=== PATIENT | male | born 1960 | race Caucasian/White ===

== ENCOUNTER 2017-03-23 06:12 | Outpatient (CLI) | payer BC ==
[~2017-03-23] VITALS: Ht 185.4 cm; Wt 129.3 kg
[~2017-03-23 06:12] MED LIST: AZIT-21 PO; BENZ100C18 PO; CPR500T PO; INSASP10V SQ; INSU100C4 SQ; LOSA1TAB20 PO; METR500T PO
[2017-03-23] MEDS ORDERED: INSU100V6 SQ (14:33)
== END 2017-03-23 14:36 ==
LOC: PREOP 06:12
PROVIDERS: ATTEND Internal Medicine
DX: Z01.818 Encounter for other preprocedural examination (principal); K63.5 Polyp of colon

== ENCOUNTER 2017-03-25 09:26 | Day surgery (SDC) | payer BC ==
--- NOTE | 2017-03-18 09:18 | HISTORY AND PHYSICAL ---
DATE OF SERVICE: COLONOSCOPY HISTORY AND PHYSICAL HISTORY OF PRESENT ILLNESS: The patient is a 56-year-old white male referred for surveillance colonoscopy due to the past history of adenomatous colonic polyps. He underwent colonoscopy last 5 years ago performed by myself, at which time he had one tubular adenoma removed from the descending colon. He had an anal canal papilloma with no other abnormalities being noted on the procedure. Since that time, he reports no change in the health history. He has felt well and has noted no bright red blood per rectum or melena. Denies abdominal pain or bowel habit change. His weight is 30 pounds over the last 5 years. PAST MEDICAL HISTORY: Significant for type 2 diabetes mellitus that is insulin dependent. MEDICATIONS: He takes 32 units of Lantus in the morning and 30 in the evening with 20 units of NovoLog before breakfast and lunch and 10 before supper. SOCIAL HISTORY: He is employed with no significant past tobacco history. 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 He has a distant past history of binge drinking, but has been off alcohol for the past 7 years. FAMILY HISTORY: Mother is living at the age of 88, but has been diagnosed with lung cancer with the history of smoking. Father of an LA at the age of 66. He is not aware of any family history for colon cancer or colon polyps. PHYSICAL EXAMINATION: GENERAL: Reveals a pleasant overweight white male, in no acute distress with a weight of 304 pounds, estimated roughly 6 feet tall. VITAL SIGNS: Blood pressure 130/98 with a large cuff, heart rate 72 and regular. HEENT: Unremarkable. Sclerae nonicteric. NECK: Revealed no JVD, adenopathy or bruits. CHEST: Clear. CARDIOVASCULAR: Reveals regular rate and rhythm without murmur, S3 or S4. ABDOMEN: Soft, supple, obese, nontender without mass or organomegaly. EXTREMITIES: Reveal no cyanosis, clubbing or edema. RECTAL EXAMINATION: Deferred at the time of colonoscopy, which was set up on 03/25/2017. ASSESSMENT: The patient was set up for surveillance colonoscopy on 03/25/2017. Prep instructions of the Suprep kit were given and questions were answered. The patient is advised to abstain from aspirin starting now and the day before his procedure, reduce his insulin by half, basal as well as bolus to prevent hypoglycemia. I thank you for the referral of this pleasant gentleman. Job ID: [id number] DocumentID: [id number] Dictated Date: 03/16/2017 20:11:29 Superintendent [employer] Date: 03/16/2017 21:04:38 Dictated By: JAROD MARIE MD MTDD
[~2017-03-25] VITALS: Ht 185.4 cm; Wt 129.3 kg
[~2017-03-25 09:26] MED LIST changes: +INSU100V6 SQ
--- OUTSIDE RECORDS SUMMARY | 2017-03-25 09:30 | XMS REPORT | Continuity of Care Document ---
Author Author [facility] Organization [facility] Address Unknown Phone Unavailable Allergies Active Description Code Type Severity Reaction Onset Reported/Identified Relationship to Patient Clinical Status Yes TETANUS TETANUS Unknown N/A 12/13/2011 Yes pioglitazone HCl [id number] Drug Allergy Unknown N/A 03/29/2012 Medications Problems Date Dx Coded Attending Type Code Diagnosis Diagnosed By 03/30/2012 Ot 250.00 03/30/2012 Ot 562.11 03/30/2012 Ot 796.2 03/30/2012 Ot V03.82 03/30/2012 Ot V58.67 01/07/2013 EUSEBIO BURNETTE MD Ot 490 01/07/2013 EUSEBIO BURNETTE MD Ot 786.2 01/05/2015 Ot V72.84 01/05/2015 Ot 211.3 01/05/2015 Ot 211.4 01/05/2015 Ot V76.51 01/05/2015 CORNELIO REDDY MD Ot 250.00 01/05/2015 CORNELIO RDEDY MD Ot 787.91 01/05/2015 CORNELIO REDDY MD Ot V58.67 Procedures Results Encounters ACCT No. Visit Date/Time Discharge Status Pt. Type Provider Facility Loc./Unit Complaint [id number] 01/05/2015 13:13:00 2014 15:45:00 DIS Emergency CORNELIO REDDY MD [facility] ER [id number] 01/07/2013 18:02:00 2012 19:27:00 DIS Emergency EUSEBIO BURNETTE MD [facility] ER [id number] 03/25/2017 11:30:00 PEN Preadmit JAROD MARIE MD [facility] SURVEILLANCE, HISTORY COLON POLYPS [id number] 03/28/2012 17:56:00 Document Registration [id number] 12/14/2011 06:43:00 Document Registration [id number] 12/13/2011 07:46:00 Document Registration
[2017-03-25 09:51] VITALS: BP 182/94
[2017-03-25] MEDS ORDERED: MIDAZOLAM 2 MG/2 ML (VERSED) VIAL IVP PRN (10:00)
[2017-03-25] MEDS ORDERED: 1/2 NS IV SOLUTION 1,000 ML IV ONE (10:00)
[2017-03-25] MEDS ORDERED: fentaNYL INJECTION 100 MCG/2 ML AMP IVP PRN (10:00)
--- NOTE | 2017-03-25 10:36 | Pre-Op Note & Conscious Sedat ---
Pre-Operative Progress Note H&P Reviewed The H&P was reviewed, patient examined and no changes noted. Date H&P Reviewed: Mar 25, 2017 Time H&P Reviewed: 10:36 Conscious Sedation Pre-Proced ASA Class: 2 Airway Mallampati Classification: (buckland appropriate class) I. II. III, IV Lungs Heart ASA score ASA 1: a normal healthy patient ASA 2: a patient with a mild systemic disease (mid diabetes, controlled hypertension, obesity ASA 3: a patient with a severe systemic disease that limits activity (angina , COPD, prior Myocardial infarction) ASA 4: a patient with an incapacitating disease that is a constant threat to life (CHF, renal failure) ASA 5: a moribund patient not expected to survive 24 hrs. (ruptured aneurysm) ASA 6: a declared brain patient whose organs are being harvested. For emergent operations, add the letter E after the classification Grade 3 Sedation Plan: Analgesia, Amnesia, Plan communicated to team members, Discussed options with patient/fam, Discussed risks with patient/fam Note The patient is an appropriate candidate to undergo the planned procedure, sedation, and anesthesia. The patient immediately re-assessed prior to indication. JAROD MARIE MD Mar 25, 2017 10:36
[2017-03-25] MEDS ORDERED: fentaNYL INJECTION 100 MCG/2 ML AMP ONE ×2 (10:52→10:53)
[2017-03-25] MEDS ORDERED: LIDOCAINE JELLY 2% (XYLOCAINE) 5 ML TUBE ONE (10:52)
[2017-03-25] MEDS ORDERED: MIDAZOLAM 2 MG/2 ML (VERSED) VIAL ONE ×3 (10:53)
[2017-03-25] MEDS ORDERED: LIDOCAINE JELLY 2% (XYLOCAINE) 5 ML TUBE MM PRN (11:00)
[2017-03-25 12:15] VITALS: BP 194/105
[2017-03-25] MEDS ORDERED: METO-310 PO (12:40)
[2017-03-25 12:45] VITALS: BP 194/105
[2017-03-25 13:05] VITALS: BP 194/105
--- NOTE | 2017-03-26 04:37 | OPERATIVE REPORT ---
DATE OF SERVICE: REPORT TITLE: Colonoscopy Summary INDICATIONS FOR THE PROCEDURE: Surveillance colonoscopy, history of colon polyps. The patient was placed in left lateral decubitus position. Prior to undergoing colonoscopy, digital rectal evaluation was performed. Anal sphincter tone was normal and the perianal reflex was intact. Again noted, there was a small perianal papilloma unchanged. The prostate was mildly enlarged, without nodularity and nontender on digital inspection. No other abnormalities noted on additional inspection of the anal canal or distal rectal vault. The colonoscope was then inserted into the rectum and under direct visualization advanced to the cecum. The cecum was identified by identification of the ileocecal valve and cecal strap. Photographic documentation was obtained. Careful inspection was made as the colonoscope was withdrawn. FINDINGS: There was no evidence for internal or external hemorrhoids and the rectum, sigmoid colon, descending colon, splenic flexure were unremarkable. Present in the proximal transverse colon was a diminutive 1 mm polyp, which was biopsied and ablated with hot forceps with tissue submitted for histopathology. A similar cecal polyp was noted again in 1 to 2 mm in size and was biopsied and ablated with no subsequent blood loss. No other abnormalities were noted on today's procedure. ASSESSMENT: Two diminutive polyps were removed today via hot forceps with no blood loss. As long as there are no surprises on histopathology, and there continues to be no family history for colon cancer, would advocate repeat screening colonoscopy in 10 years. Job ID: [id number] DocumentID: [id number] Dictated Date: 03/25/2017 13:07:07 Deputy Jailer Date: 03/25/2017 23:55:35 Dictated By: JAROD MARIE MD MTDD
== END 2017-03-25 13:05 | disposition home or self-care (01) ==
LOC: ENDO 09:26
PROVIDERS: ATTEND Internal Medicine
DX: Z12.11 Encounter for screening for malignant neoplasm of colon (principal); D12.0 Benign neoplasm of cecum; D12.3 Benign neoplasm of transverse colon; D23.5 Other benign neoplasm of skin of trunk; N40.0 Benign prostatic hyperplasia without lower urinary tract symptoms; E11.9 Type 2 diabetes mellitus without complications; Z79.4 Long term (current) use of insulin
CPT/HCPCS: 82962

== ENCOUNTER → 2018-05-19 | Outpatient (CLI) | payer BC ==
[~2018-05-19] MED LIST changes: +METO-310 PO
== END ==
LOC: CARD 12:33
PROVIDERS: ATTEND Internal Medicine Cardiovascular Disease
DX: I10 Essential (primary) hypertension (principal); E66.9 Obesity, unspecified; E11.9 Type 2 diabetes mellitus without complications; I34.0 Nonrheumatic mitral (valve) insufficiency; Z82.49 Family history of ischemic heart disease and other diseases of the circulatory system
CPT/HCPCS: 93306

== ENCOUNTER → 2019-04-13 | Outpatient (CLI) | payer BC ==
--- NOTE | 2019-04-13 10:48 | Diagnostic Imaging Report ---
PROCEDURE: US Renal Bilateral. TECHNIQUE: Multiple real-time grayscale images were obtained over the kidneys in various projections bilaterally. INDICATION: Chronic kidney disease. FINDINGS: The right kidney measures 12.2 x 6.6 x 6.1 cm and the left kidney measures 11.9 x 6.4 x 4.6 cm. Cortical thickness and echogenicity is normal bilaterally. No calculi or hydronephrosis is identified. No bladder wall thickening or mass is seen. Left ureteral jet was not visualized. Right ureteral jet is unremarkable. IMPRESSION: Unremarkable renal ultrasound. Dictated by: Dictated on workstation # [id number]
== END ==
LOC: RAD 09:30
PROVIDERS: ATTEND Internal Medicine Nephrology
DX: N18.3 Chronic kidney disease, stage 3 (moderate) (principal)
CPT/HCPCS: 76770

== ENCOUNTER → 2020-07-10 | Outpatient (CLI) | payer BC ==
--- NOTE | 2020-07-10 18:13 | NUR ---
Notified of positive COVID test.
== END ==
LOC: LABNPT 08:38
PROVIDERS: ATTEND Family Medicine
DX: U07.1 COVID-19 (principal)
CPT/HCPCS: 87635

== ENCOUNTER 2020-07-11 13:16 | Outpatient (CLI) | payer BC ==
[~2020-07-11] VITALS: Ht 185 cm; Wt 144.0 kg
[2020-07-11 13:18] VITALS: BP 116/46
[2020-07-11] MEDS ORDERED: diphenhydrAMINE 50 MG/ML INJ (BENADRYL) IV PRN (13:30)
[2020-07-11] MEDS ORDERED: BAMLANIVIMAB 700 MG in NS 200 ML IV ONE (13:30)
[2020-07-11] MEDS ORDERED: EPINEPHrine INJECTION 1 MG/ML AMP IM PRN (13:30)
[2020-07-11 14:47] VITALS: BP 178/79
[2020-07-11 15:37] VITALS: BP 189/84
== END 2020-07-11 15:50 | disposition home or self-care (01) ==
LOC: INFUSION 13:16
PROVIDERS: ATTEND Family Medicine
DX: U07.1 COVID-19 (principal)

== ENCOUNTER → 2020-07-22 | Outpatient (CLI) | payer BC ==
--- NOTE | 2020-07-22 14:48 | Diagnostic Imaging Report ---
INDICATION: Lobar pneumonia, COVID-19 coronavirus infection, diabetes mellitus. COMPARISON: 09/24/2006. FINDINGS: Frontal and lateral views of the chest demonstrate normal heart size and pulmonary vascularity. The lungs are clear. There are no signs of infiltrate, pleural effusions or pneumothoraces. The visualized osseous structures show no acute abnormalities. IMPRESSION: 1. No acute process. No signs of infiltrates, effusions or pneumothoraces. Dictated by: Dictated on workstation # [id number]
== END ==
LOC: RAD 13:53
PROVIDERS: ATTEND Internal Medicine
DX: U07.1 COVID-19 (principal); J18.1 Lobar pneumonia, unspecified organism; E11.65 Type 2 diabetes mellitus with hyperglycemia
CPT/HCPCS: 71046

== ENCOUNTER → 2020-09-11 | Outpatient (CLI) | payer BC ==
--- NOTE | 2020-09-11 15:46 | Diagnostic Imaging Report ---
INDICATION: Right lower extremity swelling and pain x4 days. History of Covid. TECHNIQUE: Multiple real-time grayscale images were obtained over the right lower extremity in various projections, bilaterally. Additional duplex Doppler and color Doppler images were also obtained. CORRELATION STUDY: None FINDINGS: Color and grayscale sonographic images demonstrate no intraluminal defect within the visualized portion of the common femoral, superficial femoral and/or popliteal veins to suggest thrombus formation. These vessels demonstrate normal response to compression and augmentation. No soft tissue fluid collection. IMPRESSION: 1. Negative for deep venous thrombosis of the right leg. Dictated by: Dictated on workstation # [id number]
== END ==
LOC: RAD 15:07
PROVIDERS: ATTEND Internal Medicine
DX: M79.89 Other specified soft tissue disorders (principal); U07.1 COVID-19

== ENCOUNTER 2022-01-11 21:11 | Emergency (ER) | payer BC ==
[~2022-01-11] VITALS: Ht 185 cm; Wt 140.0 kg
--- NOTE | 2022-01-11 22:22 | ED Cough/URI ---
General Chief Complaint: COVID19 Suspect/Confirmed Stated Complaint: CONGESTION/COUGH Source: patient Exam Limitations: no limitations (JOSSELYN DOTSON) History of Present Illness Date Seen by Provider: Jan 11, 2022 Time Seen by Provider: 22:20 Initial Comments Patient is a 61-year-old male who presents ED with cough congestion. Symptoms started this morning when he woke up. Bodyaches fatigue weakness. Reports a dry cough without chest pain or shortness of breath or wheezing. No history of COPD, asthma coronary artery disease. History of diabetes, kidney disease and hypertension. Denies of any vomiting, diarrhea. Took NyQuil today without much improvement. Was sent home from work. Patient reports history of COVID and received the monoclonal antibody. Not up-to-date on his COVID vaccines or immunization. Patient with a fever here in the ED. Does not appear toxic or septic (JOSSELYN DOTSON) Allergies and Home Medications Allergies Coded Allergies: pioglitazone HCl (Verified Allergy, Unknown, 03/25/17) LISTED BY DR. GUIDO. Uncoded Allergies: TETANUS (Allergy, Unknown, 03/23/17) Patient Home Medication List Home Medication List Reviewed: Yes (JOSSELYN DOTSON) Insulin Glargine,Hum.rec.anlog (Lantus) 300 Units/3 Ml Soln, 32 UNITS SQ MORNING, (Reported) Entered as Reported by: MARCELA COBB on 12/13/11 1458 Insulin Glargine,Hum.rec.anlog (Lantus) 100 Unit/1 Ml Vial, 30 UNIT SQ EVENING, (Reported) Entered as Reported by: SONAM SPARKS on 03/23/17 1433 Insulin Human Lispro (Humalog) 100 U/Ml Vial, 20 UNITS SQ AC, (Reported) Entered as Reported by: JUSTINE TORRES on 03/28/12 1808 Review of Systems Review of Systems Constitutional: chills; No diaphoresis; fever, malaise, weakness EENTM: No ear pain, No blurred vision, No double vision, No mouth pain, No mouth swelling, No throat pain, No throat swelling Respiratory: cough; No short of breath, No wheezing Cardiovascular: No chest pain Gastrointestinal: No abdominal pain, No nausea, No vomiting Genitourinary: No decreased output, No discharge Musculoskeletal: No back pain, No gout Skin: No change in color, No change in hair/nails (JOSSELYN DOTSON) All Other Systems Reviewed Negative Unless Noted: Yes (JOSSELYN DOTSON) Past Gwpajek-Ffeegy-Ccrwpf Hx Seasonal Allergies Seasonal Allergies: No (JOSSELYN DOTSON) Past Medical History Orthopedic Reproductive Disorders: No Sexually Transmitted Disease: No HIV/AIDS: No Polyps Diabetes, Insulin dep Loss of Vision: Denies Hearing Impairment: Denies Adverse Reaction/Blood Tranf: No (JOSSELYN DOTSON) Physical Exam Vital Signs - First Documented 01/11/22 22:08 O2 Delivery Room Air (JOSSELYN MURRAY MD) Capillary Refill : (JOSSELYN DOTSON) Height: 6'1.00" Weight: 285lbs. 0.0oz. 129.548791js; 37.6 BMI Method:Stated General Appearance: WD/WN, no apparent distress Eyes: Bilateral Eye Normal Inspection, Bilateral Eye PERRL, Bilateral Eye EOMI HEENT: PERRL/EOMI, normal ENT inspection, TMs normal, pharynx normal Neck: non-tender, full range of motion, supple, normal inspection Respiratory: chest non-tender, lungs clear, normal breath sounds, no accessory muscle use Cardiovascular: regular rate, rhythm, no edema, no gallop, no JVD Gastrointestinal: normal bowel sounds, non tender, soft, no organomegaly Extremities: normal range of motion, non-tender, normal inspection, no pedal edema Neurologic/Psychiatric: entertainment manager II-XII nml as tested, no motor/sensory deficits, alert, normal mood/affect, oriented x 3 Skin: normal color, warm/dry (JOSSELYN DOTSON) Progress/Results/Core Measures Suspected Sepsis SIRS Temperature: Pulse: Respiratory Rate: Blood Pressure / Mean: (JOSSELYN DOTSON) Results/Orders Lab Results Laboratory Tests Test 01/11/22 22:13 Range/Units Influenza Type A (RT-PCR) Not Detected Not Detecte Influenza Type B (RT-PCR) Not Detected Not Detecte SARS-CoV-2 RNA (RT-PCR) Detected H Not Detecte (JOSSELYN MURRAY MD) My Orders Orders - JOSSELYN MURRAY MD Rx-Nirmatrelvir/Ritonavir(Eua) (Rx-Paxlo (01/11/22 23:44) (JOSSELYN MURRAY MD) Medications Given in ED Current Medications Medications Dose Ordered Sig/Frida Route Start Time Stop Time Status Last Admin Dose Admin Acetaminophen 1,000 mg ONCE ONCE PO 01/11/22 22:30 01/11/22 22:31 DC 01/11/22 22:50 1,000 MG (JOSSELYN MURRAY MD) Vital Signs/I&O 01/11/22 22:08 O2 Delivery Room Air (JOSSELYN MURRAY MD) Vital Signs/I&O Capillary Refill : (JOSSELYN DOTSON) Departure Communication (PCP) Patient's symptoms started this morning. Patient was febrile. Patient was given acetaminophen. Patient denies any chest pain or shortness of breath. No evidence of wheezing noted on exam. No abdominal tenderness. Vital signs stable. Symptoms started this morning. Not up-to-date on his COVID influenza vaccine. Concerning for COVID. Currently swabs are pending. Patient was discussed with Dr. Murray who took over care at 11 PM. If positive for COVID would likely benefit with monoclonal antibody as patient is high risk (JOSSELYN DOTSON) Impression Primary Impression: COVID-19 Disposition: 01 HOME, SELF-CARE Condition: Stable Departure-Patient Inst. Decision time for Depature: 23:47 (JOSSELYN MURRAY MD) Referrals: LYNDON GÓMEZ DO (PCP/Family) Primary Care Physician Patient Instructions: Nirmatrelvir and Ritonavir FDA Fact Sheet, COVID-19 Over view Add. Discharge Instructions: You unfortunately do have COVID. You will be on this medicine twice a day for the next 5 days. Take Tylenol and/or ibuprofen as needed for fever. If you begin feeling severely short of breath we recommend coming to the ER. You can buy an oxygen probe to test your oxygen. If you go to 90% or below and cannot get it to go back up for several minutes, that is what we recommend coming back to the ER. Work/School Note: Work Release Form Date Seen in the Emergency Department: Jan 11, 2022 Return to Work: Jan 17, 2022 Restrictions: Return-No Fever (24hrs) JOSSELYN DOTSON Jan 11, 2022 22:22 JOSSELYN MURRAY MD Jan 11, 2022 23:48
[2022-01-11] MEDS ORDERED: ACETAMINOPHEN 500 MG TAB (TYLENOL) PO ONE (22:30)
[2022-01-11] MEDS ORDERED: RX-NIRMATRELVIR/RITONAVIR (PAXLOVID) #30 TABS PO STA (23:44)
[2022-01-12 00:02] VITALS: BP 152/84
== END 2022-01-12 00:02 | disposition home or self-care (01) ==
LOC: EDUNIT# 21:11 → ER 21:13
DX: U07.1 COVID-19 (principal); E11.9 Type 2 diabetes mellitus without complications; Z79.4 Long term (current) use of insulin
CPT/HCPCS: 87636; 99283

== ENCOUNTER 2023-06-08 16:00 | Inpatient (IN) | payer OTHER ==
[~2023-06-08] VITALS: Ht 185.4 cm; Wt 145.6 kg
[~2023-06-08 16:00] MED LIST changes: +AMIO200T65 PO; +ASPI81TA64 PO; +ATOR80TA76 PO; +CLOP75TA28 PO; +INSU100I10 SC; +MTP100TCR PO
--- NOTE | 2023-06-08 16:23 | ED Respiratory ---
General Chief Complaint: Respiratory Problems Stated Complaint: DIFFICULTY BREATHING | LEGS SWELLING Nursing Triage Note: PT AMB TO [facility] 7 WITH CC OF SOA AND SWELLING IN BILAT LEGS SINCE THIS AM. PT REPORTS WAS AT CARDIAC REHAB THIS AM WHEN HE HAD INCREASE WOB. PT STATES HAD STENT PLACED 1 MONTH PRIOR. PT DENIES CP AT THIS TIME PT A&OX4 Source: patient Exam Limitations: no limitations History of Present Illness Date Seen by Provider: Jun 08, 2023 Time Seen by Provider: 16:11 Initial Comments 62-year-old male presents to the ER with complaint of shortness of breath. He reports that this morning he was at cardiac rehab when he started to have shortness of breath. He reports it has been intermittent since then. Patient complains of bilateral lower extremity edema, states that the swelling has been the same for the last 3 weeks. Patient was here at the beginning of May for dizziness and was found to be in V. tach. At that time he was taken to the [facility] and found to have 100% occlusion of the LC. It was stented with 1 stent. During that admission he had bilateral lower extremity edema. He denies fevers, headache, chest pain, abdominal pain, nausea, vomiting. He reports that when he had the episode of shortness of air, he was coughing a lot and was producing white phlegm. Patient had COVID approximately 7 to 8 weeks ago. Allergies and Home Medications Allergies Coded Allergies: pioglitazone HCl (Verified Allergy, Unknown, 03/25/17) LISTED BY DR. GUIDO. Uncoded Allergies: TETANUS (Allergy, Unknown, 03/23/17) Patient Home Medication List Home Medication List Reviewed: Yes Amiodarone HCl (Amiodarone HCl) 200 Mg Tablet, 400 MG PO BID Prescribed by: MATHEUS MOLINA on 05/09/231119 Aspirin (Children's Aspirin) 81 Mg Tab.chew, 81 MG PO DAILY Prescribed by: MATHEUS MOLINA on 05/09/231119 Atorvastatin Calcium (Atorvastatin Calcium) 80 Mg Tablet, 80 MG PO HS Prescribed by: MATHEUS MOLINA on 05/09/231119 Clopidogrel Bisulfate (Clopidogrel) 75 Mg Tablet, 75 MG PO DAILY Prescribed by: MATHEUS MOLINA on 05/09/231119 Insulin Glargine,Hum.rec.anlog (Lantus Solostar) 100 Unit/Ml (3 Ml) Insuln.pen, 55 UNITS SC BID, (Reported) Entered as Reported by: COOKIE MCGUIRE on 05/09/23 3718 Metoprolol Succinate (Metoprolol Succinate) 100 Mg Tab.er.24h, 100 MG PO DAILY Prescribed by: MATHEUS MOLINA on 05/09/23 1120 Review of Systems Review of Systems Constitutional: see HPI Past Cwanvxw-Oajaxr-Avrect Hx Patient Social History Tobacco Use?: No Substance use?: No Alcohol Use?: Yes Alcohol Frequency: Several times a month Immunizations Up To Date First/Initial COVID19 Vaccinat: N/A Second COVID19 Vaccination Kristofer: N/A Third COVID19 Vaccination Date: N/A Seasonal Allergies Seasonal Allergies: No Past Medical History Surgery/Hospitalization HX: DM2, HTN, CKD Orthopedic Reproductive Disorders: No Sexually Transmitted Disease: No HIV/AIDS: No Polyps Diabetes, Insulin dep Loss of Vision: Denies Hearing Impairment: Denies Adverse Reaction/Blood Tranf: No Physical Exam Vital Signs - First Documented 06/08/23 16:04 Pulse 66 Resp 28 B/P (MAP) 166/98 (120) Pulse Ox 98 O2 Delivery Nasal Cannula O2 Flow Rate 3.00 Capillary Refill : Less Than 3 Seconds Height: 6'1.00" Weight: 285lbs. 0.0oz. 129.920343vk; 43.00 BMI Method:Stated General Appearance: WD/WN, no apparent distress Neck: supple, normal inspection Respiratory: lungs clear, no respiratory distress, no accessory muscle use, decreased breath sounds (Lower lobes) Cardiovascular: regular rate, rhythm Extremities: normal range of motion, non-tender, no calf tenderness, pedal edema (2+ pitting edema right lower extremity, 1+ pitting edema left lower extremity), other (Pedal pulses intact) Neurologic/Psychiatric: alert, normal mood/affect Skin: normal color, warm/dry Progress/Results/Core Measures Suspected Sepsis SIRS Temperature: Pulse: 66 Respiratory Rate: 28 Laboratory Tests 06/08/23 16:13: White Blood Count 6.4 Blood Pressure 166 /98 Mean: 120 Laboratory Tests 06/08/23 16:13: Creatinine 2.67H, Platelet Count 163, Total Bilirubin 0.4 Results/Orders Lab Results Laboratory Tests Test 06/08/23 16:13 Range/Units White Blood Count 6.4 4.3-11.0 10^3/uL Red Blood Count 3.91 L 4.30-5.52 10^6/uL Hemoglobin 11.3 L 13.3-17.7 g/dL Hematocrit 36 L 40-54 % Mean Corpuscular Volume 91 80-99 fL Mean Corpuscular Hemoglobin 29 25-34 pg Mean Corpuscular Hemoglobin Concent 32 32-36 g/dL Red Cell Distribution Width 15.1 H 10.0-14.5 % Platelet Count 163 130-400 10^3/uL Mean Platelet Volume 11.0 9.0-12.2 fL Immature Granulocyte % (Auto) 1 % Neutrophils (%) (Auto) 58 42-75 % Lymphocytes (%) (Auto) 28 12-44 % Monocytes (%) (Auto) 11 0-12 % Eosinophils (%) (Auto) 3 0-10 % Basophils (%) (Auto) 1 0-10 % Neutrophils # (Auto) 3.7 1.8-7.8 10^3/uL Lymphocytes # (Auto) 1.8 1.0-4.0 10^3/uL Monocytes # (Auto) 0.7 0.0-1.0 10^3/uL Eosinophils # (Auto) 0.2 0.0-0.3 10^3/uL Basophils # (Auto) 0.0 0.0-0.1 10^3/uL Immature Granulocyte # (Auto) 0.0 0.0-0.1 10^3/uL Sodium Level 142 135-145 MMOL/L Potassium Level 4.5 3.6-5.0 MMOL/L Chloride Level 107 98-107 MMOL/L Carbon Dioxide Level 27 21-32 MMOL/L Anion Gap 8 5-14 MMOL/L Blood Urea Nitrogen 31 H 7-18 MG/DL Creatinine 2.67 H 0.60-1.30 MG/DL Estimat Glomerular Filtration Rate 26 BUN/Creatinine Ratio 12 Glucose Level 139 H 70-105 MG/DL Calcium Level 9.8 8.5-10.1 MG/DL Corrected Calcium 9.9 8.5-10.1 MG/DL Magnesium Level 1.9 1.6-2.4 MG/DL Total Bilirubin 0.4 0.1-1.0 MG/DL Aspartate Amino Transf (AST/SGOT) 13 5-34 U/L Alanine Aminotransferase (ALT/SGPT) 14 0-55 U/L Alkaline Phosphatase 105 40-136 U/L B-Type Natriuretic Peptide 1194.2 H <100.0 PG/ML Total Protein 7.2 6.4-8.2 GM/DL Albumin 3.9 3.2-4.5 GM/DL My Orders Orders - SALVADOR GRACIA Talat TAYLOR Ekg Tracing (06/08/23 16:11) Cbc And Automated Diff (06/08/23 16:21) Magnesium (06/08/23 16:21) Chest 1 View, Ap/Pa Only (06/08/23 16:21) Comprehensive Metabolic Panel (06/08/23 16:21) O2 (06/08/23 16:21) Monitor-Rhythm Ecg Trace Only (06/08/23 16:21) Ed Iv/Invasive Line Start (06/08/23 16:21) Bnp [place] (06/08/23 16:21) Furosemide Injection (Furosemide Injec (06/08/23 17:45) Ed Admission (Communication) (06/08/23 17:48) Medications Given in ED Current Medications Medications Dose Ordered Sig/Frida Route Start Time Stop Time Status Last Admin Dose Admin Furosemide 80 mg ONCE ONCE IVP 06/08/23 17:45 06/08/23 17:46 DC 06/08/23 17:49 80 MG Vital Signs/I&O 06/08/23 06/08/23 16:04 16:04 Pulse 66 Resp 28 B/P (MAP) 166/98 (120) Pulse Ox 98 98 O2 Delivery Nasal Cannula Nasal Cannula O2 Flow Rate 3.00 3.00 Capillary Refill : Less Than 3 Seconds Blood Pressure Mean: 120 Progress Note : Progress Note Patient seen and evaluated, resting currently in bed, no acute distress. Based on exam and symptoms, parental diagnosis includes but is not limited to CHF exacerbation or pneumonia. Other possibility would be a PE, but Wells score for PE is 0. Patient does not have clinical signs symptoms of a DVT. Cardiac catheterization was 5 weeks ago. Work-up initiated included CBC, CMP, magnesium, BNP, chest x-ray, EKG. I initially ordered a COVID and flu swab, but this patient states that he had COVID just prior to his last admission at the end of April. Echo completed during previous admission showed EF of 45 to 50%. 1744 labs and chest x-ray reviewed. CBC shows anemia, hemoglobin 11.3, hematocrit 36, these are improved from previous labs. CMP shows chronic kidney disease, BUN 31, creatinine 2.67, GFR 26, these are baseline for patient. Magnesium normal 1.9. BNP elevated 1194. This is over twice as much as previous admission. Chest x-ray shows stable cardiomegaly. It shows possible developing infiltrate or atelectasis in the left lower lobe but difficult to view due to body habitus. Called and discussed the case with Dr. Dunn, cardiology. He recommends administering 80 mg of IV Lasix now and daily. Patient has never taken Lasix. Due to patient's hypoxia, I called and spoke with Dr. Kim, hospitalist, he agrees to admit patient. He will place admission orders. He would like patient to go to the cardiac stepdown unit as an inpatient. ECG Initial ECG Impression Date: Jun 08, 2023 Initial ECG Impression Time: 16:22 Initial ECG Rate: 67 Initial ECG Rhythm: Normal Sinus Initial ECG Intervals: MD (100) Initial ECG Impression: Nonspecific Changes Initial ECG Comparisson: Unchanged Departure Communication (Admissions) Time/Spoke to Admitting Phy: 17:44 Dr. Kim, hospitalist, see progress note. Time/Spoke to Consulting Phy: 17:34 Dr. Dunn, cardiology, see progress note. Impression Primary Impression: CHF exacerbation Qualified Codes: I50.9 - Heart failure, unspecified Additional Impression: Hypoxia Disposition: ADMITTED INPATIENT Condition: Stable Admissions Decision to Admit Reason: Admit from ER (General) Decision to Admit/Date: Jun 08, 2023 Time/Decision to Admit Time: 17:34 Departure-Patient Inst. Referrals: LYNDON GÓMEZ DO (PCP/Family) Primary Care Physician SALVADOR GRACIA APRN Jun 08, 2023 16:23
[2023-06-08 16:30] LABS: BASOPHILS % (AUTO) 1 % (0-10); EOSINOPHILS # (AUTO) 0.2 10^3/uL (0.0-0.3); EOSINOPHILS % (AUTO) 3 % (0-10); HEMATOCRIT 36 % (40-54); HEMOGLOBIN 11.3 g/dL (13.3-17.7); LYMPHOCYTES # (AUTO) 1.8 10^3/uL (1.0-4.0); LYMPHOCYTES % (AUTO) 28 % (12-44); MEAN CORPUSCULAR HEMOGLOBIN 29 pg (25-34); MEAN CORPUSCULAR HGB CONC 32 g/dL (32-36); MEAN CORPUSCULAR VOLUME 91 fL (80-99); MONOCYTES # (AUTO) 0.7 10^3/uL (0.0-1.0); MONOCYTES % (AUTO) 11 % (0-12); NEUTROPHILS # (AUTO) 3.7 10^3/uL (1.8-7.8); NEUTROPHILS % (AUTO) 58 % (42-75); PLATELET COUNT 163 10^3/uL (130-400); WHITE BLOOD COUNT 6.4 10^3/uL (4.3-11.0)
[2023-06-08 16:45] LABS: ALBUMIN 3.9 GM/DL (3.2-4.5); BILIRUBIN,TOTAL 0.4 MG/DL (0.1-1.0); CALCIUM 9.8 MG/DL (8.5-10.1); CREATININE SERUM 2.67 MG/DL (0.60-1.30); MAGNESIUM 1.9 MG/DL (1.6-2.4); POTASSIUM 4.5 MMOL/L (3.6-5.0); TOTAL PROTEIN 7.2 GM/DL (6.4-8.2)
--- NOTE | 2023-06-08 16:46 | Diagnostic Imaging Report ---
INDICATION: Chest pain. COMPARISON: 05/04/2023. FINDINGS: The heart is enlarged but unchanged. Body habitus limits basilar evaluation. There may be an infiltrate or atelectasis in the left lower lobe but this is unclear. The upper lobes are clear. No pneumothorax. No definite pleural fluid. IMPRESSION: Stable cardiomegaly. There may be a developing infiltrate or atelectasis in the left lower lobe. No other potential change. Dictated by: Dictated on workstation # [id number]
[2023-06-08] MEDS ORDERED: FUROSEMIDE INJECTION 40 MG/4 ML VIAL IVP ONE (17:45)
[2023-06-08] MEDS ORDERED: MELATONIN 3 MG TABLET PO PRN (19:15)
[2023-06-08] MEDS ORDERED: diphenhydrAMINE 25 MG TABLET PO PRN (19:15)
[2023-06-08] MEDS ORDERED: ONDANSETRON INJECTION 4 MG/2 ML (SDV) IV PRN (19:15)
[2023-06-08] MEDS ORDERED: ACETAMINOPHEN 325 MG TABLET PO PRN (19:15)
[2023-06-08] MEDS ORDERED: diphenhydrAMINE INJ 50 MG/ML VIAL IVP PRN (19:15)
[2023-06-08] MEDS ORDERED: CALCIUM CARBONATE 500 MG CHEW TABLET PO PRN (19:15)
[2023-06-08] MEDS ORDERED: MILK OF MAGNESIA 400 MG/5 ML 30 ML UDC PO PRN (19:15)
[2023-06-08] MEDS ORDERED: ONDANSETRON 4 MG ORAL DISSOLVE TABLET PO PRN (19:15)
[2023-06-08] MEDS ORDERED: ANTACID SUSPENSION 30 ML UDC PO PRN (19:15)
[2023-06-08] MEDS ORDERED: LACTULOSE SYRUP 10GM/15ML 30ML UDC PO PRN (19:15)
[2023-06-08] MEDS ORDERED: BISACODYL 10 MG SUPPOSITORY PR PRN (19:15)
[2023-06-08 19:39] VITALS: BP 166/98
[2023-06-08] MEDS ORDERED: RT-ALBUTEROL SULF 2.5 MG/3 ML PRE-MIX VIAL INH PRN (20:00)
[2023-06-08] MEDS: inSUlin ASPART 1 UNIT/0.01 ML (PER UNIT) SC SCH (20:39)
[2023-06-08] MEDS: SENNOSIDES 8.6 MG TABLET PO SCH (20:40)
[2023-06-08] MEDS: DOCUSATE SODIUM 100 MG CAPSULE PO SCH (20:40)
[2023-06-08] MEDS: AMIODARONE 200 MG TABLET PO SCH (20:45)
[2023-06-08] MEDS: inSUlin DETERMIR 1 UNIT/0.01 ML (CHARGE PER UNIT) SQ SCH (20:45)
[2023-06-08 23:15] VITALS: BP 164/99
[2023-06-09 04:28] VITALS: BP 134/86
[2023-06-09 04:46] LABS: BASOPHILS % (AUTO) 1 % (0-10); EOSINOPHILS # (AUTO) 0.2 10^3/uL (0.0-0.3); EOSINOPHILS % (AUTO) 3 % (0-10); HEMATOCRIT 36 % (40-54); HEMOGLOBIN 11.3 g/dL (13.3-17.7); LYMPHOCYTES # (AUTO) 1.7 10^3/uL (1.0-4.0); LYMPHOCYTES % (AUTO) 28 % (12-44); MEAN CORPUSCULAR HEMOGLOBIN 28 pg (25-34); MEAN CORPUSCULAR HGB CONC 31 g/dL (32-36); MEAN CORPUSCULAR VOLUME 91 fL (80-99); MEAN PLATELET VOLUME 10.9 fL (9.0-12.2); MONOCYTES # (AUTO) 0.8 10^3/uL (0.0-1.0); MONOCYTES % (AUTO) 13 % (0-12); NEUTROPHILS # (AUTO) 3.3 10^3/uL (1.8-7.8); NEUTROPHILS % (AUTO) 56 % (42-75); PLATELET COUNT 168 10^3/uL (130-400)
[2023-06-09 05:07] LABS: POTASSIUM 4.5 MMOL/L (3.6-5.0)
[2023-06-09 05:08] LABS: CALCIUM 9.4 MG/DL (8.5-10.1)
[2023-06-09 05:13] LABS: CREATININE SERUM 2.73 MG/DL (0.60-1.30)
[2023-06-09] MEDS: inSUlin ASPART 1 UNIT/0.01 ML (PER UNIT) SC SCH ×3 (08:23→16:05)
[2023-06-09] MEDS: SENNOSIDES 8.6 MG TABLET PO SCH (08:24)
[2023-06-09] MEDS: DOCUSATE SODIUM 100 MG CAPSULE PO SCH (08:24)
[2023-06-09] MEDS: inSUlin DETERMIR 1 UNIT/0.01 ML (CHARGE PER UNIT) SQ SCH (08:26)
[2023-06-09] MEDS: AMIODARONE 200 MG TABLET PO SCH (08:26)
[2023-06-09] MEDS ORDERED: ASPI-1238 PO (08:36)
[2023-06-09] MEDS ORDERED: MTP100TCR PO (08:36)
[2023-06-09] MEDS ORDERED: AMIO200T65 PO (08:36)
[2023-06-09] MEDS ORDERED: CLOP75TA28 PO (08:36)
[2023-06-09 08:43] VITALS: BP 154/92
[2023-06-09] MEDS ORDERED: CLOPIDOGREL 75 MG TABLET PO SCH (09:00)
[2023-06-09] MEDS ORDERED: FUROSEMIDE INJECTION 40 MG/4 ML VIAL IVP SCH (09:00)
[2023-06-09 11:48] VITALS: BP 151/108
[2023-06-09] MEDS ORDERED: ASPIRIN 81 MG CHEWABLE TABLET PO NR (13:15)
[2023-06-09] MEDS ORDERED: POTA10CA84 PO (15:48)
[2023-06-09] MEDS ORDERED: FURO40TA4 PO (15:48)
--- NOTE | 2023-06-09 16:36 | Consultation-Cardiology ---
HPI-Cardiology Cardiology Consultation: Date of Consultation 06/09/23 Time Seen by a Provider: 12:30 Date of Admission Attending Physician Rock Ellington DO Admitting Physician Admitting Physician: Imer Herrera MD Attending Physician: Imer Herrera MD Consulting Physician JORGITO RIDDLE MD, MA, FACP, FACC, FSCAI, CCDS Physician requesting consult: Dr Herrera HPI: Chief Complaint: Shortness of breath 62 yo man who could not attend Cardiac Rehab yesterday because of shortness of breath that had been present for 2-3 days and worsening, along with worsening of leg swelling. No cp or palp or syncope or n/v/d or focal weakness or gen weakness. Went to the ER where he was diagnosed with CHF and hospitalized and treated with furosemide. Feels well today and thinks has resumed his baseline. Now wishes to go home Review of Systems-Cardiology Review of Systems Constitutional: As described under HPI Eyes: No vision change Ears/Nose/Throat: No ear discharge, No nasal drainage, No recent hearing loss, No ulcerations Respiratory: As described under HPI Cardiovascular: As described under HPI Gastrointestinal: As described under HPI Genitourinary: No dysuria, No hematuria, No urine frequency changes Musculoskeletal: No back pain, No joint pain Skin: No rash, No ulcerations Psychiatric/Neurological: No seizure, No focal weakness, No syncope Hematologic: No bleeding abnormalities NJD-Qyfzvr-Bhfwua Hx Patient Social History Alcohol Use?: Yes Immunizations Up To Date Date of Pneumonia Vaccine: May 13, 2014 Date of Influenza Vaccine: May 10, 2016 Past Medical History PMH As described under Assessment. Family Medical History Family Medical History: He does not report fam h/o early CAD Allergies and Home Medications Allergies Coded Allergies: pioglitazone HCl (Verified Allergy, Unknown, 03/25/17) LISTED BY DR. GUIDO. Uncoded Allergies: TETANUS (Allergy, Unknown, 03/23/17) Patient Home Medication List Home Medication List Reviewed: Yes Amiodarone HCl (Amiodarone HCl) 200 Mg Tablet, 200 MG PO BID, (Reported) Entered as Reported by: BRIGIDA PERRY on 06/09/23835 Last Action: Reviewed Aspirin (Aspirin EC) 81 Mg Tablet., 81 MG PO DAILY, (Reported) Entered as Reported by: BRIGIDA PERRY on 06/09/23835 Last Action: Reviewed Clopidogrel Bisulfate (Clopidogrel) 75 Mg Tablet, 75 MG PO DAILY, (Reported) Entered as Reported by: BRIGIDA PERRY on 06/09/23835 Last Action: Reviewed Furosemide (Furosemide) 40 Mg Tablet, 40 MG PO DAILY Prescribed by: IMER HERRERA on 06/09/231547 Insulin Glargine,Hum.rec.anlog (Lantus Solostar) 100 Unit/Ml (3 Ml) Insuln.pen, 45 UNITS SC BID, (Reported) Entered as Reported by: COOKIE MCGUIRE on 05/09/231457 Last Action: Reviewed Metoprolol Succinate (Metoprolol Succinate) 100 Mg Tab.er.24h, 100 MG PO DAILY, (Reported) Entered as Reported by: BRIGIDA PERRY on 06/09/23835 Last Action: Reviewed Potassium Chloride (Potassium Chloride) 10 Meq Capsule.er, 10 MEQ PO DAILY Prescribed by: IMER HERRERA on 06/09/231547 Discontinued Medications Amiodarone HCl (Amiodarone HCl) 200 Mg Tablet, 400 MG PO BID Discontinued Reason: Duplicate Order Prescribed by: MATHEUS MOLINA on 05/09/231119 Last Action: Discontinued Aspirin (Children's Aspirin) 81 Mg Tab.chew, 81 MG PO DAILY Discontinued Reason: Duplicate Order Prescribed by: MATHEUS MOLINA on 05/09/231119 Last Action: Discontinued Atorvastatin Calcium (Atorvastatin Calcium) 80 Mg Tablet, 80 MG PO HS Discontinued Reason: Duplicate Order Prescribed by: MATHEUS MOLINA on 05/09/231119 Last Action: Discontinued Clopidogrel Bisulfate (Clopidogrel) 75 Mg Tablet, 75 MG PO DAILY Discontinued Reason: Duplicate Order Prescribed by: MATHEUS MOLINA on 05/09/231119 Last Action: Discontinued Metoprolol Succinate (Metoprolol Succinate) 100 Mg Tab.er.24h, 100 MG PO DAILY Discontinued Reason: Duplicate Order Prescribed by: MATHEUS MOLINA on 05/09/231119 Last Action: Discontinued Physical Exam-Cardiology Physical Exam Vital Signs/I&O 06/09/23 06/09/23 06/09/23 06/09/23 07:51 08:36 08:43 11:48 Temp 36.3 36.2 Pulse 55 64 56 Resp 20 B/P (MAP) 154/92 (112) 151/108 (122) Pulse Ox 93 93 O2 Delivery Nasal Cannula Nasal Cannula Nasal Cannula O2 Flow Rate 1.00 1.00 1.00 06/09/23 06/09/23 12:14 12:15 Pulse 54 Pulse Ox 93 O2 Delivery Room Air 06/09/23 00:00 Intake Total 200 ml Balance 200 ml Capillary Refill : Less Than 3 Seconds Constitutional: AAO x 3, well-developed, well-nourished HEENT: EOMI, hearing is well preserved; No xanthelasmas are seen Neck: carotid pulses are 2 + bilaterally, with good upstrokes Respiratory: No accessory muscle use; chest expansion is symmetric, chest is bilaterally symmetric, other (fair, bilat air entry) Cardiovascular: regular rate-rhythm, S1 and S2, systolic murmur (soft DEDRICK at card base) Gastrointestinal: No tender; soft; No guarding, No rebound; audible bowel sounds Extremities: swelling (mild, bilat ankle edema); No clubbing, No cyanosis Neurologic/Psychiatric: oriented x 3, other (moves all limbs equally) Skin: warm/dry; No cyanosis, No diaphoresis, No rash on exposed areas, No ulcerations on exposed areas Data Review Labs Laboratory Tests 06/08/23 20:24: Glucometer 127H 06/09/23 04:30: White Blood Count 6.0, Red Blood Count 3.98L, Hemoglobin 11.3L, Hematocrit 36L, Mean Corpuscular Volume 91, Mean Corpuscular Hemoglobin 28, Mean Corpuscular Hemoglobin Concent 31L, Red Cell Distribution Width 15.0H, Platelet Count 168, Mean Platelet Volume 10.9, Immature Granulocyte % (Auto) 0, Neutrophils (%) (Auto) 56, Lymphocytes (%) (Auto) 28, Monocytes (%) (Auto) 13H, Eosinophils (%) (Auto) 3, Basophils (%) (Auto) 1, Neutrophils # (Auto) 3.3, Lymphocytes # (Auto) 1.7, Monocytes # (Auto) 0.8, Eosinophils # (Auto) 0.2, Basophils # (Auto) 0.0, Immature Granulocyte # (Auto) 0.0, Sodium Level 142, Potassium Level 4.5, Chloride Level 106, Carbon Dioxide Level 26, Anion Gap 10, Blood Urea Nitrogen 34H, Creatinine 2.73H, Estimat Glomerular Filtration Rate 26, BUN/Creatinine Ratio 12, Glucose Level 101, Calcium Level 9.4 06/09/23 10:38: Glucometer 118H Laboratory Tests 06/08/23 16:13 06/09/23 04:30 A/P-Cardiology Assessment/Admission Diagnosis Ac diastolic CHF CAD - Incessant VT due to ac NSTEMI, resolved with PCI on 05/04/23 - Emergency card cath on 05/04/23: 100% proximally occluded LCx successfully treated with Resolute [place] 2.0 x 12 mm stent with no residual stenosis and normal antegrade flow. D1 of LAD has 50% mid- vessel stenosis. Multiple mild to mod plaques in all coronaries. RCA dominant. LVEDP 23 mmHg. LV angio not done to conserve contrast, given patient's advanced CKD - Recurrent VT within 4 hours of coronary intervention; no recurrence since - started on Amiodarone tx during hospitalization - Echo on 05-04-23: LVEF 45-50% w/o RWMA, mild enlargement of both atria, small pericard eff, PASP 20-25 mmHg DM II CKD-4 Obesity - BMI 41 KEVIN Discussion and Recomendations * Furosemide and K added to regimen * Continue previous regimen, including DAPT * Advised outpt cardiac f/u * Discussed all of the above with JORGITO Ledesma MD FACP [facility] CCDS Jun 09, 2023 16:36
[2023-06-09 16:55] VITALS: BP 151/108
--- NOTE | 2023-06-09 17:18 | Short Stay Summary-Hospitalist ---
History of Present Illness HPI/Chief Complaint Bryan Heard is a 62 year old male with PMH CAD, VTach, HTN, T2DM, HFpEF, CKD 4, morbid obesity, who presented with shortness of breath from cardiac rehab. This has been worsening for a couple days. He also has leg swelling. He denies chest pain and palpitations. He denies fevers and chills. He had some cough. He denies abdominal pain, nausea, vomiting, and diarrhea. He was admitted one month ago with NSTEMI. He underwent heart cath with coronary stent placement. He is on aspirin and plavix. His course was complicated by VTach. He remains on amiodarone. Source: patient Exam Limitations: no limitations Date Seen 06/09/23 Time Seen by a Provider: 10:15 Attending Physician Rock Ellington DO PCP Admitting Physician: Kamini Kim MD Attending Physician: Kamini Kim MD Referring Physician Date of Admission Jun 08, 2023 at 18:42 Home Medications & Allergies Home Medications Reviewed patient Home Medication Reconciliation performed by pharmacy medication reconciliations automotive engineering technician and/or nursing. Patients Allergies have been reviewed. Allergies Allergies Coded Allergies pioglitazone HCl (Verified Allergy, Unknown, 03/25/17) LISTED BY DR. GUIDO. Uncoded Allergies TETANUS ( Allergy, Unknown, 03/23/17) Past Zjxqqpv-Urwdcr-Nnouok Hx Patient Social History Tobacco Use?: No Substance use?: No Alcohol Use?: Yes Alcohol Frequency: Several times a month Immunizations Up To Date Date of Influenza Vaccine: May 10, 2016 First/Initial COVID19 Vaccinat: N/A Second COVID19 Vaccination Kristofer: N/A Date of Pneumonia Vaccine: May 13, 2014 Seasonal Allergies Seasonal Allergies: No Current Status Primary Language: Indonesian Preferred Spoken Language: Indonesian Past Medical History Surgeries: Orthopedic Sexually Transmitted Disease: No HIV/AIDS: No Polyps Diabetes, Insulin dep Loss of Vision: Denies Hearing Impairment: Denies Adverse Reaction/Blood Tranf: No Family Medical History No Pertinent Family Hx Review of Systems Constitutional: no symptoms reported Respiratory: cough, short of breath Cardiovascular: no symptoms reported Gastrointestinal: no symptoms reported Physical Exam Physical Exam Vital Signs Vital Signs - First Documented 06/08/23 06/09/23 16:04 08:43 Temp 36.3 Pulse 66 Resp 28 B/P (MAP) 166/98 (120) Pulse Ox 98 O2 Delivery Nasal Cannula O2 Flow Rate 3.00 Capillary Refill : Less Than 3 Seconds Height, Weight, BMI Height: 6'1.00" Weight: 285lbs. 0.0oz. 129.278736jj; 43.00 BMI Method:Stated General Appearance: No Apparent Distress, Obese HEENT: PERRL/EOMI, Pharynx Normal Neck: Normal Inspection, Supple Respiratory: Lungs Clear, No Respiratory Distress Cardiovascular: No Murmur, Bradycardia Gastrointestinal: Normal Bowel Sounds, Soft Extremity: Normal Inspection, Pedal Edema Neurologic/Psychiatric: Alert, Normal Mood/Affect Skin: Normal Color, Warm/Dry Results Results/Procedures Labs Laboratory Tests 06/08/23 16:13 06/09/23 04:30 Patient resulted labs reviewed. Imaging: Reviewed Imaging Report Short Stay Diagnosis Discharge Diagnosis-Short Stay Admission Diagnosis Acute on chronic heart failure with preserved ejection fraction Final Discharge Diagnosis Acute on chronic heart failure with preserved ejection fraction Conclusion Plan Acute on chronic heart failure with preserved ejection fraction Acute respiratory failure with hypoxia Hypertension Coronary artery disease Ventricular tachycardia Chronic kidney disease, stage 4 Cardiology consulted and assisted with care Given IV Lasix, symptoms improved Oxygen requirement resolved, now on room air Started on oral Lasix and potassium Continued on Aspirin and Plavix Continued on Amiodarone Follow up with Cardiology in 2-3 weeks Diagnosis/Problems Diagnosis/Problems (1) Acute on chronic heart failure with preserved ejection fraction (HFpEF) Status: Acute (2) Acute respiratory failure with hypoxia Status: Acute (3) V-tach Status: Chronic (4) CKD (chronic kidney disease) stage 4, GFR 15-29 ml/min Status: Chronic (5) HTN (hypertension) Status: Chronic (6) CAD (coronary artery disease) Status: Chronic (7) Morbid obesity Status: Chronic Copy Copies To 1: ROCK ELLINGTON JARIN M MD Jun 09, 2023 17:18
[2023-06-10] MEDS ORDERED: ASPIRIN 81 MG CHEWABLE TABLET PO SCH (09:00)
== END 2023-06-09 17:10 | disposition home or self-care (01) | DRG 291 ==
LOC: EDUNIT# 16:00 → ER 16:01 → CSD 18:42
PROVIDERS: ADMIT Internal Medicine; ATTEND Internal Medicine
DX: I13.0 Hypertensive heart and chronic kidney disease with heart failure and stage 1 through stage 4 chronic kidney disease, or unspecified chronic kidney disease (principal); I50.31 Acute diastolic (congestive) heart failure; N18.4 Chronic kidney disease, stage 4 (severe); Z68.41 Body mass index [BMI] 40.0-44.9, adult; E66.9 Obesity, unspecified; I25.10 Atherosclerotic heart disease of native coronary artery without angina pectoris; R09.02 Hypoxemia; E11.22 Type 2 diabetes mellitus with diabetic chronic kidney disease; Z79.4 Long term (current) use of insulin
CPT/HCPCS: 36415; 71045; 80048; 80053; 82947; 83735; 83880; 85025; 93005; 93041; 94761; 96374

== ENCOUNTER 2023-06-20 11:56 | Outpatient (RCR) | payer OTHER ==
[~2023-06-20 11:56] MED LIST changes: +ASPI-1238 PO; +FURO40TA4 PO; +POTA10CA84 PO
== END 2023-06-30 | disposition home or self-care (01) ==
LOC: CR 11:56
PROVIDERS: ATTEND Internal Medicine Cardiovascular Disease
DX: Z29.89 Encounter for other specified prophylactic measures (principal); I25.10 Atherosclerotic heart disease of native coronary artery without angina pectoris
CPT/HCPCS: 93798

== ENCOUNTER 2023-07-04 11:25 | Inpatient (IN) | payer OTHER ==
[~2023-07-04] VITALS: Ht 185 cm; Wt 145.4 kg
--- NOTE | 2023-07-04 12:11 | ED Cardiac General ---
History of Present Illness General Chief Complaint: Dizziness/Syncope Stated Complaint: DIZZY | LIGHTHEADED Nursing Triage Note: PT AMB TO TRIAGE WITH C/O FEELING DIZZY SINCE EARLY THIS AM WHEN WAKING UP. PT DENIES SICKNESS Source: patient, old records Exam Limitations: no limitations History of Present Illness Date Seen by Provider: Jul 04, 2023 Time Seen by Provider: 12:03 Initial Comments This 62-year-old gentleman presents to the emergency room with primary complaint of feeling lightheaded since waking up this morning. He has had some lesser episodes briefly in the past, but the lightheadedness is persistent this morning. He feels relatively well when he is sitting or lying, but the lightheadedness returns when he stands and exerts. He is not having any chest pain or shortness of breath. He has not had any actual syncopal episodes. He had an STEMI and episodes of ventricular tachycardia on May 04. A stent was placed during that encounter. He is presently taking amiodarone. His medication filling record also reveals a prescription for Toprol-XL [address] 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 Ellington is his primary care provider. He is noted to be bradycardic on the cushion stuffer with a heart rate in the mid 40s in sinus rhythm. 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 GUIDO. Uncoded Allergies: TETANUS (Allergy, Unknown, 03/23/17) Patient Home Medication List Home Medication List Reviewed: Yes Amiodarone HCl (Amiodarone HCl) 200 Mg Tablet, 200 MG PO BID, (Reported) Entered as Reported by: BRIGIDA PERRY on 06/09/23835 Aspirin (Aspirin EC) 81 Mg Tablet.dr 81 MG PO DAILY, (Reported) Entered as Reported by: BRIGIDA PERRY on 06/09/23835 Clopidogrel Bisulfate (Clopidogrel) 75 Mg Tablet, 75 MG PO DAILY, (Reported) Entered as Reported by: BRIGIDA PERRY on 06/09/23835 Furosemide (Furosemide) 40 Mg Tablet, 40 MG PO DAILY Prescribed by: IMER HERRERA on 06/09/23 7816 Last Action: Held Insulin Glargine,Hum.rec.anlog (Lantus Solostar) 100 Unit/Ml (3 Ml) Insuln.pen, 45 UNITS SC BID, (Reported) Entered as Reported by: COOKIE MCGUIRE on 05/09/23 1458 Metoprolol Succinate (Metoprolol Succinate) 100 Mg Tab.er.24h, 100 MG PO DAILY, (Reported) Entered as Reported by: BRIGIDA PERRY on 06/09/23 0836 Last Action: Held Potassium Chloride (Potassium Chloride) 10 Meq Capsule.er, 10 MEQ PO DAILY Prescribed by: IMER HERRERA on 06/09/23 1548 Last Action: Held Review of Systems Review of Systems Constitutional: no symptoms reported EENTM: No Symptoms Reported Respiratory: No Symptoms Reported Cardiovascular: See HPI Gastrointestinal: No Symptoms Reported Genitourinary: No Symptoms Reported Musculoskeletal: no symptoms reported Skin: no symptoms reported Psychiatric/Neurological: No Symptoms Reported Endocrine: No Symptoms Reported Past Fyydinc-Sgnlhz-Juanhn Hx Patient Social History Tobacco Use?: No Substance use?: No Alcohol Use?: No Pt feels they are or have been: No Immunizations Up To Date Influenza Vaccine Up-to-Date: Yes; Up-to-Date First/Initial COVID19 Vaccinat: N/A Second COVID19 Vaccination Kristofer: N/A Third COVID19 Vaccination Date: N/A Seasonal Allergies Seasonal Allergies: No Past Medical History Surgery/Hospitalization HX: DM2, HTN, CKD, CAD STENT X1, BILAT HIP REPLACEMENTS, URINARY RECONSTRUCTION SURG Surgeries: Yes Coronary Stent, Orthopedic Respiratory: No Cardiac: Yes (ventricular tachycardia) Coronary Artery Disease Neurological: No Reproductive Disorders: No Sexually Transmitted Disease: No HIV/AIDS: No Gastrointestinal: Yes Polyps Musculoskeletal: Yes Arthritis Endocrine: Yes Diabetes, Insulin dep Loss of Vision: Denies Hearing Impairment: Denies Adverse Reaction/Blood Tranf: No Family Medical History No Pertinent Family Hx Physical Exam Vital Signs Vital Signs - First Documented 07/04/23 11:37 Temp 36.5 Pulse 46 Resp 14 B/P (MAP) 152/84 (106) Pulse Ox 96 O2 Delivery Room Air Capillary Refill : Less Than 3 Seconds Height, Weight, BMI Height: 6'1.00" Weight: 285lbs. 0.0oz. [id number]; 41.00 BMI Method:Stated General Appearance: No Apparent Distress, WD/WN, Obese HEENT: PERRL/EOMI, Normal ENT Inspection Neck: Normal Inspection; No JVD Respiratory: Lungs Clear, Normal Breath Sounds, No Accessory Muscle Use Cardiovascular: No Edema, No Murmur, Bradycardia, Other (LE edema) Gastrointestinal: Non Tender, Soft Extremity: Pedal Edema Neurologic/Psychiatric: Alert, Oriented x3, No Motor/Sensory Deficits, Normal Mood/Affect Skin: Normal Color, Warm/Dry Progress/Results/Core Measures Results/Orders Lab Results Laboratory Tests Test 07/04/23 12:07 Range/Units White Blood Count 6.5 4.3-11.0 10^3/uL Red Blood Count 3.98 L 4.30-5.52 10^6/uL Hemoglobin 11.2 L 13.3-17.7 g/dL Hematocrit 36 L 40-54 % Mean Corpuscular Volume 91 80-99 fL Mean Corpuscular Hemoglobin 28 25-34 pg Mean Corpuscular Hemoglobin Concent 31 L 32-36 g/dL Red Cell Distribution Width 15.7 H 10.0-14.5 % Platelet Count 167 130-400 10^3/uL Mean Platelet Volume 11.3 9.0-12.2 fL Immature Granulocyte % (Auto) 1 % Neutrophils (%) (Auto) 62 42-75 % Lymphocytes (%) (Auto) 27 12-44 % Monocytes (%) (Auto) 9 0-12 % Eosinophils (%) (Auto) 1 0-10 % Basophils (%) (Auto) 1 0-10 % Neutrophils # (Auto) 4.1 1.8-7.8 10^3/uL Lymphocytes # (Auto) 1.8 1.0-4.0 10^3/uL Monocytes # (Auto) 0.6 0.0-1.0 10^3/uL Eosinophils # (Auto) 0.1 0.0-0.3 10^3/uL Basophils # (Auto) 0.0 0.0-0.1 10^3/uL Immature Granulocyte # (Auto) 0.0 0.0-0.1 10^3/uL Sodium Level 142 135-145 MMOL/L Potassium Level 5.1 H 3.6-5.0 MMOL/L Chloride Level 110 H 98-107 MMOL/L Carbon Dioxide Level 24 21-32 MMOL/L Anion Gap 8 5-14 MMOL/L Blood Urea Nitrogen 62 H 7-18 MG/DL Creatinine 3.37 H 0.60-1.30 MG/DL Estimat Glomerular Filtration Rate 20 BUN/Creatinine Ratio 18 Glucose Level 109 H 70-105 MG/DL Calcium Level 9.6 8.5-10.1 MG/DL Magnesium Level 2.3 1.6-2.4 MG/DL Thyroid Stimulating Hormone (TSH) 6.35 H 0.35-4.94 UIU/ML My Orders Orders - JENNA LAU MD Ekg Tracing (07/04/23 11:47) Basic Metabolic Panel (07/04/23 12:03) Cbc And Automated Diff (07/04/23 12:03) Magnesium (07/04/23 12:03) Monitor-Rhythm Ecg Trace Only (07/04/23 12:03) Orthostatic Vital Signs (Adult (07/04/23 12:10) Ed Iv/Invasive Line Start (07/04/23 12:49) Ns Iv 500 Ml (Ns Iv 500 Ml) (07/04/23 13:00) Ed Admission (Communication) (07/04/23 14:17) Code/Resuscitation (07/04/23 14:39) Medications Given in ED Current Medications Medications Dose Ordered Sig/Frida Route Start Time Stop Time Status Last Admin Dose Admin Sodium Chloride 500 ml @ 0 mls/hr Q0M ONCE IV 07/04/23 13:00 07/04/23 13:01 DC 07/04/23 12:58 500 MLS/HR Vital Signs/I&O 07/04/23 07/04/23 11:37 12:56 Temp 36.5 Pulse 46 48 45 44 Resp 14 B/P (MAP) 152/84 (106) 125/76 (92) 111/68 (82) 105/65 (78) Pulse Ox 96 O2 Delivery Room Air Blood Pressure Mean: 106 Progress Progress Note : Progress Note Patient was interviewed and examined. He had persistent sinus bradycardia with heart rate in the 40s. He was asymptomatic while lying in the exam bed. Orthostatic blood pressures were obtained. He did have a 20 point drop from lying to standing. He remained bradycardic even with the drop in blood pressure. Patient noted that he takes amiodarone. Toprol-XL 100 mg daily was noted in his medication filling record as well. Case was discussed with Dr. Dunn who recommended admission for observation while holding beta-blockers. He received a fluid bolus of 500 mL normal saline while in the ER. Labs were obtained and interpreted by me. CBC was notable for slight anemia with hemoglob in of 11.2. Chemistry abnormalities included elevated potassium of 5.1, elevated creatinine of 3.37 which represents a mild acute kidney injury when compared with baseline, elevated BUN of 62, and mild hyperglycemia of 139. TSH was mildly elevated at 6.35. I discussed the case with Dr. Herrera who agrees with admission. CODE STATUS was discussed, and the patient would like to remain full code. Initial ECG Impression Date: Jul 04, 2023 Initial ECG Impression Time: 12:03 Initial ECG Rate: 45 Initial ECG Rhythm: S.Ravinder Initial ECG Intervals: Normal Initial ECG Impression: Normal Comment Sinus bradycardia with no ST elevation or depression. No abnormal intervals or axis deviation. Departure Communication (Admissions) Time/Spoke to Admitting Phy: 14:15 Dr. Herrera Time/Spoke to Consulting Phy: 14:10 Dr. Dunn Impression Primary Impression: Symptomatic bradycardia Additional Impressions: Orthostatic hypotension Acute kidney injury Disposition: ADMITTED INPATIENT Condition: Stable Admissions Decision to Admit Reason: Admit from ER (General) Decision to Admit/Date: Jul 04, 2023 Time/Decision to Admit Time: 14:15 Departure-Patient Inst. Referrals: LYNDON ELLINGTON DO (PCP/Family) Primary Care Physician Copy Copies To 1: LYNDON ELLINGTON JOSHUA T MD Jul 04, 2023 12:11
[2023-07-04 12:13] LABS: BASOPHILS % (AUTO) 1 % (0-10); EOSINOPHILS # (AUTO) 0.1 10^3/uL (0.0-0.3); EOSINOPHILS % (AUTO) 1 % (0-10); HEMATOCRIT 36 % (40-54); HEMOGLOBIN 11.2 g/dL (13.3-17.7); LYMPHOCYTES # (AUTO) 1.8 10^3/uL (1.0-4.0); LYMPHOCYTES % (AUTO) 27 % (12-44); MEAN CORPUSCULAR HEMOGLOBIN 28 pg (25-34); MEAN CORPUSCULAR HGB CONC 31 g/dL (32-36); MEAN CORPUSCULAR VOLUME 91 fL (80-99); MEAN PLATELET VOLUME 11.3 fL (9.0-12.2); MONOCYTES # (AUTO) 0.6 10^3/uL (0.0-1.0); MONOCYTES % (AUTO) 9 % (0-12); NEUTROPHILS # (AUTO) 4.1 10^3/uL (1.8-7.8); NEUTROPHILS % (AUTO) 62 % (42-75); PLATELET COUNT 167 10^3/uL (130-400); WHITE BLOOD COUNT 6.5 10^3/uL (4.3-11.0)
[2023-07-04 12:27] LABS: CALCIUM 9.6 MG/DL (8.5-10.1)
[2023-07-04 12:31] LABS: CREATININE SERUM 3.37 MG/DL (0.60-1.30)
[2023-07-04 12:34] LABS: MAGNESIUM 2.3 MG/DL (1.6-2.4)
[2023-07-04 12:45] LABS: POTASSIUM 5.1 MMOL/L (3.6-5.0)
[2023-07-04 12:56] VITALS: BP_SYST 105; BP_SYST 111; BP_SYST 125; BP_DIAS 65; BP_DIAS 68; BP_DIAS 76
[2023-07-04] MEDS ORDERED: NS IV 500 ML 500 ML IV ONE (13:00)
--- NOTE | 2023-07-04 15:43 | Consultation-Cardiology ---
HPI-Cardiology Cardiology Consultation: Date of Consultation 07/04/23 Time Seen by a Provider: 15:30 Date of Admission 07-04-23 Attending Physician Rock Ellington DO Admitting Physician Admitting Physician: Imer Herrera MD Attending Physician: Imer Herrera MD Consulting Physician Shubham Dunn MD HPI: Chief Complaint: Dizziness Near syncope Mr. Heard is a 62 yr old male admitted to [facility] from the ED with c/o waking up this morning feeling very dizzy. He denies any syncope, reporting that at times he feels as though he may pass out, but he would sit down and that would improve. No c/o CP, palpitations. No c/o LE swelling. No c/o n/v/d. No c/o fever or chills. He reports he has been taking his medications as ordered. Review of Systems-Cardiology Review of Systems Constitutional: No chills, No fever, No malaise Eyes: No vision change Ears/Nose/Throat: No epistaxis, No recent hearing loss Respiratory: As described under HPI Cardiovascular: As described under HPI Gastrointestinal: No nausea/vomiting/diarrhea Genitourinary: No dysuria Musculoskeletal: no symptoms reported Skin: No rash on exposed areas, No ulcerations on exposed areas Psychiatric/Neurological: As described under HPI; No anxiety, No depression, No seizure, No focal weakness, No syncope Hematologic: No bleeding abnormalities BOT-Ofjhrv-Hcllvh Hx Patient Social History Alcohol Use?: No Pt feels they are or have been: No Immunizations Up To Date Date of Pneumonia Vaccine: May 13, 2014 Date of Influenza Vaccine: May 10, 2016 Past Medical History PMH As described under Assessment. Family Medical History Family Medical History: He does not report fam h/o early CAD Allergies and Home Medications Allergies Coded Allergies: pioglitazone HCl (Verified Allergy, Unknown, 03/25/17) LISTED BY DR. GUIDO. Uncoded Allergies: TETANUS (Allergy, Unknown, 03/23/17) Patient Home Medication List Amiodarone HCl (Amiodarone HCl) 200 Mg Tablet, 200 MG PO BID, (Reported) Entered as Reported by: BRIGIDA PERRY on 06/09/23 0836 Aspirin (Aspirin EC) 81 Mg Tablet.dr, 81 MG PO DAILY, (Reported) Entered as Reported by: BRIGIDA PERRY on 11/9/23 0836 Clopidogrel Bisulfate (Clopidogrel) 75 Mg Tablet, 75 MG PO DAILY, (Reported) Entered as Reported by: BRIGIDA PERRY on 06/09/23835 Furosemide (Furosemide) 40 Mg Tablet, 40 MG PO DAILY Prescribed by: IMER HERRERA on 06/09/231547 Last Action: Held Insulin Glargine,Hum.rec.anlog (Lantus Solostar) 100 Unit/Ml (3 Ml) Insuln.pen, 45 UNITS SC BID, (Reported) Entered as Reported by: COOKIE MCGUIRE on 05/09/231457 Metoprolol Succinate (Metoprolol Succinate) 100 Mg Tab.er.24h, 100 MG PO DAILY, (Reported) Entered as Reported by: BRIGIDA PERRY on 06/09/23835 Last Action: Held Potassium Chloride (Potassium Chloride) 10 Meq Capsule.er, 10 MEQ PO DAILY Prescribed by: IMER HERRERA on 06/09/231547 Last Action: Held Physical Exam-Cardiology Physical Exam Vital Signs/I&O 07/04/23 07/05/23 07/05/23 07/05/23 23:54 00:00 01:00 03:39 Temp 36.2 36.4 Pulse 44 44 43 Resp 26 22 B/P (MAP) 111/71 (84) 124/71 (88) Pulse Ox 97 98 O2 Delivery Nasal Cannula Nasal Cannula O2 Flow Rate 2.00 2.00 07/05/23 07/05/23 07/05/23 04:58 06:44 07:00 Pulse 44 43 B/P (MAP) 151/83 (105) Pulse Ox 98 O2 Delivery Nasal Cannula Nasal Cannula O2 Flow Rate 2.00 2.00 07/04/23 23:59 Intake Total 900 ml Balance 900 ml Capillary Refill : Less Than 3 Seconds Constitutional: AAO x 3, well-developed, well-nourished HEENT: PERRL, hearing is well preserved, oral hygience is good Neck: No carotid bruit; carotid pulses are 2 + bilaterally Respiratory: No accessory muscle use, No respiratory distress; chest expansion is symmetric, chest is bilaterally symmetric, lungs clear to auscultation Cardiovascular: bradycardia Gastrointestinal: No tender; soft, round; No guarding; audible bowel sounds Extremities: no lower extremity edema bilateral Neurologic/Psychiatric: grossly intact (moves all extremities) Skin: No rash on exposed areas, No ulcerations on exposed areas Data Review Labs Laboratory Tests 07/04/23 12:07: White Blood Count 6.5, Red Blood Count 3.98L, Hemoglobin 11.2L, Hematocrit 36L, Mean Corpuscular Volume 91, Mean Corpuscular Hemoglobin 28, Mean Corpuscular Hemoglobin Concent 31L, Red Cell Distribution Width 15.7H, Platelet Count 167, Mean Platelet Volume 11.3, Immature Granulocyte % (Auto) 1, Neutrophils (%) (Auto) 62, Lymphocytes (%) (Auto) 27, Monocytes (%) (Auto) 9, Eosinophils (%) (Auto) 1, Basophils (%) (Auto) 1, Neutrophils # (Auto) 4.1, Lymphocytes # (Auto) 1.8, Monocytes # (Auto) 0.6, Eosinophils # (Auto) 0.1, Basophils # (Auto) 0.0, Immature Granulocyte # (Auto) 0.0, Sodium Level 142, Potassium Level 5.1H, Chloride Level 110H, Carbon Dioxide Level 24, Anion Gap 8, Blood Urea Nitrogen 62H, Creatinine 3.37H, Estimat Glomerular Filtration Rate 20, BUN/Creatinine Ratio 18, Glucose Level 109H, Calcium Level 9.6, Magnesium Level 2.3, Thyroid Stimulating Hormone (TSH) 6.35H 07/04/23 20:51: Glucometer 139H 07/05/23 04:49: White Blood Count 6.5, Red Blood Count 3.84L, Hemoglobin 10.9L, Hematocrit 35L, Mean Corpuscular Volume 91, Mean Corpuscular Hemoglobin 28, Mean Corpuscular Hemoglobin Concent 31L, Red Cell Distribution Width 15.7H, Platelet Count 153, Mean Platelet Volume 11.6, Immature Granulocyte % (Auto) 0, Neutrophils (%) (Auto) 64, Lymphocytes (%) (Auto) 25, Monocytes (%) (Auto) 9, Eosinophils (%) (Auto) 1, Basophils (%) (Auto) 1, Neutrophils # (Auto) 4.2, Lymphocytes # (Auto) 1.6, Monocytes # (Auto) 0.6, Eosinophils # (Auto) 0.1, Basophils # (Auto) 0.1, Immature Granulocyte # (Auto) 0.0, Sodium Level 140, Potassium Level 4.5, Chloride Level 112H, Carbon Dioxide Level 22, Anion Gap 6, Blood Urea Nitrogen 55H, Creatinine 2.92#H, Estimat Glomerular Filtration Rate 24, BUN/Creatinine Ratio 19, Glucose Level 58*L, Calcium Level 9.1, Magnesium Level 2.1, Corrected Calcium 9.4, Total Bilirubin 0.4, Aspartate Amino Transf (AST/SGOT) 13, Alanine Aminotransferase (ALT/SGPT) 18, Alkaline Phosphatase 71, Total Protein 6.6, Albumin 3.6 07/05/23 06:29: Glucometer 114H ECG Impression ECG Initial ECG Rhythm: S.Ravinder A/P-Cardiology Assessment/Admission Diagnosis Bradycardia with near syncope H/O Incessant VT due to ac NSTEMI, resolved with PCI - Emergency card cath on 05/04/23: 100% proximally occluded LCx successfully treated with Resolute [place] 2.0 x 12 mm stent with no residual stenosis and normal antegrade flow. D1 of LAD has 50% mid-vessel stenosis. Multiple mild to mod plaques in all coronaries. RCA dominant. LVEDP 23 mmHg. LV angio not done to conserve contrast, given patient's advanced CKD - Recurrent VT within 4 hours of coronary intervention; no recurrence since - started on Amiodarone tx during hospitalization - Echo on 05-04-23: LVEF 45-50% w/o RWMA, mild enlargement of both atria, small pericard eff, PASP 20-25 mmHg DM II CKD-4 Obesity - BMI 41 KEVIN Discussion and Recomendations Bradycardia with near syncope - stop Toprol XL - continue Amiodarone d/t h/o VT - monitor on tele - check TSH Acute on chronic kidney dz - CKD 4 (Cr greater than 2.5 since May 2023) - hold diuretics and potassium Echocardiogram Further recs will be based on hospital course We would like to thank medical services for this consult Clinical Quality Measures AMI/AHF: ASA po Prior to arrival: MATHEUS Camilo Jul 04, 2023 15:43
[2023-07-04 15:45] VITALS: BP 134/81
[2023-07-04 16:00] VITALS: BP 148/86
[2023-07-04] MEDS ORDERED: MILK OF MAGNESIA 400 MG/5 ML 30 ML UDC PO PRN (16:30)
[2023-07-04] MEDS ORDERED: diphenhydrAMINE INJ 50 MG/ML VIAL IVP PRN (16:30)
[2023-07-04] MEDS ORDERED: MELATONIN 3 MG TABLET PO PRN (16:30)
[2023-07-04] MEDS ORDERED: diphenhydrAMINE 25 MG TABLET PO PRN (16:30)
[2023-07-04] MEDS ORDERED: LACTULOSE SYRUP 10GM/15ML 30ML UDC PO PRN (16:30)
[2023-07-04] MEDS ORDERED: ONDANSETRON INJECTION 4 MG/2 ML (SDV) IV PRN (16:30)
[2023-07-04] MEDS ORDERED: ONDANSETRON 4 MG ORAL DISSOLVE TABLET PO PRN (16:30)
[2023-07-04] MEDS ORDERED: ANTACID SUSPENSION 30 ML UDC PO PRN (16:30)
[2023-07-04] MEDS ORDERED: CALCIUM CARBONATE 500 MG CHEW TABLET PO PRN (16:30)
[2023-07-04] MEDS ORDERED: BISACODYL 10 MG SUPPOSITORY PR PRN (16:30)
[2023-07-04] MEDS: NS IV 1000 ML 1,000 ML IV SCH ×2 (17:37→23:47)
--- NOTE | 2023-07-04 18:34 | Consultation-Cardiology ---
HPI-Cardiology Cardiology Consultation: Date of Consultation 07/04/23 Time Seen by a Provider: 18:00 Date of Admission Attending Physician Rock Ellington DO Admitting Physician Admitting Physician: Imer Herrera MD Attending Physician: Imer Herrera MD Consulting Physician JORGITO RIDDLE MD, MA, FACP, FACC, FSCAI, CCDS HPI: Chief Complaint: Dizziness Near syncope Mr. Heard is a 62 yr old male admitted to [facility] from the ED with c/o waking up this morning feeling very dizzy. He denies any syncope, reporting that at times he feels as though he may pass out, but he would sit down and that would improve. No c/o CP, palpitations. No c/o LE swelling. No c/o n/v/d. No c/o fever or chills. He reports he has been taking his medications as ordered. Review of Systems-Cardiology Review of Systems Constitutional: No chills, No fever, No malaise Eyes: No vision change Ears/Nose/Throat: No epistaxis, No recent hearing loss Respiratory: As described under HPI Cardiovascular: As described under HPI Gastrointestinal: No nausea/vomiting/diarrhea Genitourinary: No dysuria Musculoskeletal: no symptoms reported Skin: No rash on exposed areas, No ulcerations on exposed areas Psychiatric/Neurological: As described under HPI Hematologic: No bleeding abnormalities HDQ-Txiswd-Vulijk Hx Patient Social History Alcohol Use?: Yes Pt feels they are or have been: No Immunizations Up To Date Date of Pneumonia Vaccine: May 13, 2014 Date of Influenza Vaccine: May 10, 2016 Past Medical History PMH As described under Assessment. Family Medical History Family Medical History: He does not report fam h/o early CAD Allergies and Home Medications Allergies Coded Allergies: pioglitazone HCl (Verified Allergy, Unknown, 03/25/17) LISTED BY DR. GUIDO. Uncoded Allergies: TETANUS (Allergy, Unknown, 03/23/17) Patient Home Medication List Home Medication List Reviewed: Yes Amiodarone HCl (Amiodarone HCl) 200 Mg Tablet, 200 MG PO BID, (Reported) Entered as Reported by: BRIGIDA PERRY on 06/09/23 08 Aspirin (Aspirin EC) 81 Mg Tablet.dr, 81 MG PO DAILY, (Reported) Entered as Reported by: BRIGIDA PERRY on 11/9/23 0836 Clopidogrel Bisulfate (Clopidogrel) 75 Mg Tablet, 75 MG PO DAILY, (Reported) Entered as Reported by: BRIGIDA PERRY on 06/09/23835 Furosemide (Furosemide) 40 Mg Tablet, 40 MG PO DAILY Prescribed by: IMER HERRERA on 06/09/231547 Last Action: Held Insulin Glargine,Hum.rec.anlog (Lantus Solostar) 100 Unit/Ml (3 Ml) Insuln.pen, 45 UNITS SC BID, (Reported) Entered as Reported by: COOKIE MCGUIRE on 05/09/231457 Metoprolol Succinate (Metoprolol Succinate) 100 Mg Tab.er.24h, 100 MG PO DAILY, (Reported) Entered as Reported by: BRIGIDA PERRY on 06/09/23835 Last Action: Held Potassium Chloride (Potassium Chloride) 10 Meq Capsule.er, 10 MEQ PO DAILY Prescribed by: IMER HERRERA on 06/09/231547 Last Action: Held Physical Exam-Cardiology Physical Exam Vital Signs/I&O 07/04/23 07/04/23 07/04/23 07/04/23 11:37 12:56 15:40 15:45 Temp 36.5 Pulse 46 48 43 45 45 44 Resp 14 14 B/P (MAP) 152/84 (106) 125/76 (92) 133/85 134/81 (98) 111/68 (82) 105/65 (78) Pulse Ox 96 96 O2 Delivery Room Air Room Air Room Air 07/04/23 07/04/23 15:53 16:00 Pulse 43 44 B/P (MAP) 148/86 (106) Pulse Ox 92 O2 Delivery Room Air Capillary Refill : Less Than 3 Seconds Constitutional: AAO x 3, well-developed, well-nourished HEENT: PERRL, hearing is well preserved, oral hygience is good Neck: carotid pulses are 2 + bilaterally Respiratory: chest expansion is symmetric, chest is bilaterally symmetric, lungs clear to auscultation Cardiovascular: bradycardia Gastrointestinal: soft, round, audible bowel sounds Extremities: no lower extremity edema bilateral Neurologic/Psychiatric: grossly intact Skin: No rash on exposed areas, No ulcerations on exposed areas Data Review Labs Laboratory Tests 07/04/23 12:07: White Blood Count 6.5, Red Blood Count 3.98L, Hemoglobin 11.2L, Hematocrit 36L, Mean Corpuscular Volume 91, Mean Corpuscular Hemoglobin 28, Mean Corpuscular Hemoglobin Concent 31L, Red Cell Distribution Width 15.7H, Platelet Count 167, Mean Platelet Volume 11.3, Immature Granulocyte % (Auto) 1, Neutrophils (%) (Auto) 62, Lymphocytes (%) (Auto) 27, Monocytes (%) (Auto) 9, Eosinophils (%) (Auto) 1, Basophils (%) (Auto) 1, Neutrophils # (Auto) 4.1, Lymphocytes # (Auto) 1.8, Monocytes # (Auto) 0.6, Eosinophils # (Auto) 0.1, Basophils # (Auto) 0.0, Immature Granulocyte # (Auto) 0.0, Sodium Level 142, Potassium Level 5.1H, Chloride Level 110H, Carbon Dioxide Level 24, Anion Gap 8, Blood Urea Nitrogen 62H, Creatinine 3.37H, Estimat Glomerular Filtration Rate 20, BUN/Creatinine Ratio 18, Glucose Level 109H, Calcium Level 9.6, Magnesium Level 2.3, Thyroid Stimulating Hormone (TSH) 6.35H A/P-Cardiology Assessment/Admission Diagnosis Bradycardia with near syncope H/O Incessant VT due to ac NSTEMI, resolved with PCI - Emergency card cath on 05/04/23: 100% proximally occluded LCx successfully treated with Resolute [place] 2.0 x 12 mm stent with no residual stenosis and n ormal antegrade flow. D1 of LAD has 50% mid-vessel stenosis. Multiple mild to mod plaques in all coronaries. RCA dominant. LVEDP 23 mmHg. LV angio not done to conserve contrast, given patient's advanced CKD - Recurrent VT within 4 hours of coronary intervention; no recurrence since - started on Amiodarone tx during hospitalization - Echo on 05-04-23: LVEF 45-50% w/o RWMA, mild enlargement of both atria, small pericard eff, PASP 20-25 mmHg DM II CKD-4 Obesity - BMI 41 KEVIN Discussion and Recomendations Bradycardia with near syncope - stop Toprol XL - continue Amiodarone d/t h/o VT - monitor on tele - check TSH Acute on chronic kidney dz - CKD 4 (Cr greater than 2.5 since May 2023) - hold diuretics and potassium Echocardiogram Further recs will be based on hospital course We would like to thank medical services for this consult Clinical Quality Measures AMI/AHF: ASA po Prior to arrival: JORGITO Atwood MD FACP FAC CCDS Jul 04, 2023 18:34
[2023-07-04 20:04] VITALS: BP 147/84
[2023-07-04] MEDS: DOCUSATE SODIUM 100 MG CAPSULE PO SCH (21:06)
[2023-07-04] MEDS: SENNOSIDES 8.6 MG TABLET PO SCH (21:06)
[2023-07-04] MEDS: inSUlin ASPART 1 UNIT/0.01 ML (PER UNIT) SC SCH (21:07)
[2023-07-04] MEDS: inSUlin DETERMIR 1 UNIT/0.01 ML (CHARGE PER UNIT) SQ SCH (21:19)
[2023-07-04] MEDS: AMIODARONE 200 MG TABLET PO SCH (21:19)
[2023-07-04 23:54] VITALS: BP 111/71
[2023-07-05] VITALS (7 sets, daily range): BP systolic 124–159; BP diastolic 71–91
[2023-07-05 05:09] LABS: BASOPHILS # (AUTO) 0.1 10^3/uL (0.0-0.1); BASOPHILS % (AUTO) 1 % (0-10); EOSINOPHILS # (AUTO) 0.1 10^3/uL (0.0-0.3); EOSINOPHILS % (AUTO) 1 % (0-10); HEMATOCRIT 35 % (40-54); HEMOGLOBIN 10.9 g/dL (13.3-17.7); LYMPHOCYTES # (AUTO) 1.6 10^3/uL (1.0-4.0); LYMPHOCYTES % (AUTO) 25 % (12-44); MEAN CORPUSCULAR HEMOGLOBIN 28 pg (25-34); MEAN CORPUSCULAR HGB CONC 31 g/dL (32-36); MEAN CORPUSCULAR VOLUME 91 fL (80-99); MEAN PLATELET VOLUME 11.6 fL (9.0-12.2); MONOCYTES # (AUTO) 0.6 10^3/uL (0.0-1.0); MONOCYTES % (AUTO) 9 % (0-12); NEUTROPHILS # (AUTO) 4.2 10^3/uL (1.8-7.8); NEUTROPHILS % (AUTO) 64 % (42-75); PLATELET COUNT 153 10^3/uL (130-400); WHITE BLOOD COUNT 6.5 10^3/uL (4.3-11.0)
[2023-07-05 05:19] LABS: ALBUMIN 3.6 GM/DL (3.2-4.5); POTASSIUM 4.5 MMOL/L (3.6-5.0)
[2023-07-05 05:20] LABS: CALCIUM 9.1 MG/DL (8.5-10.1)
[2023-07-05 05:21] LABS: TOTAL PROTEIN 6.6 GM/DL (6.4-8.2)
[2023-07-05 05:23] LABS: BILIRUBIN,TOTAL 0.4 MG/DL (0.1-1.0)
[2023-07-05 05:25] LABS: CREATININE SERUM 2.92 MG/DL (0.60-1.30)
[2023-07-05 05:28] LABS: MAGNESIUM 2.1 MG/DL (1.6-2.4)
[2023-07-05] MEDS: inSUlin ASPART 1 UNIT/0.01 ML (PER UNIT) SC SCH ×4 (06:03→21:57)
[2023-07-05] MEDS: DOCUSATE SODIUM 100 MG CAPSULE PO SCH ×2 (08:11→21:00)
[2023-07-05] MEDS: CLOPIDOGREL 75 MG TABLET PO SCH (08:11)
[2023-07-05] MEDS: AMIODARONE 200 MG TABLET PO SCH (08:11)
[2023-07-05] MEDS: SENNOSIDES 8.6 MG TABLET PO SCH ×2 (08:11→21:00)
[2023-07-05] MEDS: ASPIRIN 81 MG CHEWABLE TABLET PO SCH (08:11)
--- NOTE | 2023-07-05 08:46 | Progress Note - Cardiology ---
Cardiology SOAP Progress Note Subjective: Lying in bed No c/o CP, SOB, palpitations, syncope or near syncope Objective: I&O/Vital Signs 07/05/23 07/06/23 07/06/23 07/06/23 23:30 00:00 00:20 00:26 Temp 36.2 Pulse 45 46 46 Resp 24 21 22 B/P (MAP) 139/77 (97) 139/77 (97) Pulse Ox 96 98 98 O2 Delivery Nasal Cannula Nasal Cannula Nasal Cannula O2 Flow Rate 2.00 2.00 2.00 07/06/23 07/06/23 07/06/23 07/06/23 00:28 04:00 04:45 07:00 Temp 36.4 Pulse 48 46 46 47 Resp 18 18 B/P (MAP) 100/51 (67) 100/51 (67) Pulse Ox 96 96 O2 Delivery Nasal Cannula Nasal Cannula O2 Flow Rate 2.00 2.00 07/06/23 08:00 Pulse 56 Resp 18 B/P (MAP) 127/71 (89) Pulse Ox 99 O2 Delivery Nasal Cannula O2 Flow Rate 2.00 07/05/23 23:59 Intake Total 2520 ml Balance 2520 ml Weight (Pounds): 285 Weight (Ounces): 0.0 Weight (Calculated Kilograms): 129.124579 Constitutional: AAO x 3, well-developed, well-nourished Respiratory: chest expansion is symmetric, chest is bilaterally symmetric, lungs clear to auscultation Cardiovascular: bradycardia Gastrointestional: soft, round, audible bowel sounds Extremities: no lower extremity edema bilateral Neurologic/Psychiatric: grossly intact Skin: No rash on exposed areas, No ulcerations on exposed areas Results/Procedures: Labs Laboratory Tests 07/05/23 11:36: Glucometer 200H 07/05/23 15:46: Glucometer 202H 07/05/23 21:00: Glucometer 191H 07/06/23 04:59: White Blood Count 5.8, Red Blood Count 3.65L, Hemoglobin 10.4L, Hematocrit 34L, Mean Corpuscular Volume 92, Mean Corpuscular Hemoglobin 29, Mean Corpuscular Hemoglobin Concent 31L, Red Cell Distribution Width 15.9H, Platelet Count 126L, Mean Platelet Volume 11.5, Immature Granulocyte % (Auto) 0, Neutrophils (%) (Auto) 63, Lymphocytes (%) (Auto) 24, Monocytes (%) (Auto) 12, Eosinophils (%) (Auto) 1, Basophils (%) (Auto) 0, Neutrophils # (Auto) 3.6, Lymphocytes # (Auto) 1.4, Monocytes # (Auto) 0.7, Eosinophils # (Auto) 0.1, Basophils # (Auto) 0.0, Immature Granulocyte # (Auto) 0.0, Percent Immature Platelet Fraction 5.8, So dium Level 140, Potassium Level 4.9, Chloride Level 113H, Carbon Dioxide Level 21, Anion Gap 6, Blood Urea Nitrogen 46H, Creatinine 2.63H, Estimat Glomerular Filtration Rate 27, BUN/Creatinine Ratio 17, Glucose Level 72, Calcium Level 8.5, Corrected Calcium 9.0, Total Bilirubin 0.4, Aspartate Amino Transf (AST/SGOT) 11, Alanine Aminotransferase (ALT/SGPT) 15, Alkaline Phosphatase 77, Total Protein 6.3L, Albumin 3.4 A/P: Assessment: Bradycardia with near syncope - improving H/O Incessant VT due to ac NSTEMI, resolved with PCI - Emergency card cath on 05/04/23: 100% proximally occluded LCx successfully treated with Resolute [place] 2.0 x 12 mm stent with no residual stenosis and normal antegrade flow. D1 of LAD has 50% mid-vessel stenosis. Multiple mild to mod plaques in all coronaries. RCA dominant. LVEDP 23 mmHg. LV angio not done to conserve contrast, given patient's advanced CKD - Recurrent VT within 4 hours of coronary intervention; no recurrence since - started on Amiodarone tx during hospitalization - Echo on 05-04-23: LVEF 45-50% w/o RWMA, mild enlargement of both atria, small pericard eff, PASP 20-25 mmHg DM II CKD-4 Obesity - BMI 41 KEVIN Plan: Bradycardia with near syncope - HR improving following cessation of BB - continue Amiodarone d/t h/o VT Acute on chronic kidney dz - CKD 4 (Cr greater than 2.5 since May 2023) - improved - Contnue to hold diuretics and potassium Echocardiogram pending Clinical Quality Measures AMI/AHF: ASA po Prior to arrival: MATHEUS Camilo Jul 05, 2023 08:46
[2023-07-05] MEDS: NS IV 1000 ML 1,000 ML IV SCH ×4 (08:56→18:13)
[2023-07-05] MEDS ORDERED: POTA10CA84 PO (10:18)
[2023-07-05] MEDS ORDERED: FURO40TA4 PO (10:18)
--- NOTE | 2023-07-05 14:07 | Progress Note - Cardiology ---
Cardiology SOAP Progress Note Subjective: No cp or palp or syncope or shortness of breath Gen weakness No focal weakness No n/v/d Objective: I&O/Vital Signs 07/05/23 07/05/23 07/05/23 07/05/23 03:39 04:58 06:44 07:00 Temp 36.4 Pulse 44 43 B/P (MAP) 151/83 (105) Pulse Ox 98 O2 Delivery Nasal Cannula Nasal Cannula O2 Flow Rate 2.00 2.00 07/05/23 07/05/23 07/05/23 07/05/23 08:00 08:59 12:00 13:19 Temp 36.5 Pulse 48 48 48 Resp 18 18 B/P (MAP) 158/91 (113) 137/78 (97) Pulse Ox 98 94 O2 Delivery Room Air Nasal Cannula Room Air O2 Flow Rate 2.00 07/04/23 23:59 Intake Total 900 ml Balance 900 ml Weight (Pounds): 285 Weight (Ounces): 0.0 Weight (Calculated Kilograms): 129.029665 Constitutional: AAO x 3, well-developed, well-nourished Respiratory: chest expansion is symmetric, chest is bilaterally symmetric, lungs clear to auscultation Cardiovascular: bradycardia Gastrointestional: soft, round, audible bowel sounds Extremities: no lower extremity edema bilateral Neurologic/Psychiatric: grossly intact Skin: No rash on exposed areas, No ulcerations on exposed areas Results/Procedures: Labs Laboratory Tests 07/04/23 20:51: Glucometer 139H 07/05/23 04:49: White Blood Count 6.5, Red Blood Count 3.84L, Hemoglobin 10.9L, Hematocrit 35L, Mean Corpuscular Volume 91, Mean Corpuscular Hemoglobin 28, Mean Corpuscular Hemoglobin Concent 31L, Red Cell Distribution Width 15.7H, Platelet Count 153, Mean Platelet Volume 11.6, Immature Granulocyte % (Auto) 0, Neutrophils (%) (Auto) 64, Lymphocytes (%) (Auto) 25, Monocytes (%) (Auto) 9, Eosinophils (%) (Auto) 1, Basophils (%) (Auto) 1, Neutrophils # (Auto) 4.2, Lymphocytes # (Auto) 1.6, Monocytes # (Auto) 0.6, Eosinophils # (Auto) 0.1, Basophils # (Auto) 0.1, Immature Granulocyte # (Auto) 0.0, Sodium Level 140, Potassium Level 4.5, Chlori de Level 112H, Carbon Dioxide Level 22, Anion Gap 6, Blood Urea Nitrogen 55H, Creatinine 2.92#H, Estimat Glomerular Filtration Rate 24, BUN/Creatinine Ratio 19, Glucose Level 58*L, Calcium Level 9.1, Corrected Calcium 9.4, Magnesium Level 2.1, Total Bilirubin 0.4, Aspartate Amino Transf (AST/SGOT) 13, Alanine Aminotransferase (ALT/SGPT) 18, Alkaline Phosphatase 71, Total Protein 6.6, Albumin 3.6 07/05/23 06:29: Glucometer 114H 07/05/23 11:36: Glucometer 200H Laboratory Tests 07/04/23 12:07 07/05/23 04:49 A/P: Assessment: Bradycardia with near syncope - improving H/O Incessant VT due to ac NSTEMI, resolved with PCI of culprit lesion on 05/04/23 - Emergency card cath on 05/04/23: 100% proximally occluded LCx successfully tr eated with Resolute [place] 2.0 x 12 mm stent with no residual stenosis and normal antegrade flow. D1 of LAD has 50% mid-vessel stenosis. Multiple mild to mod plaques in all coronaries. RCA dominant. LVEDP 23 mmHg. LV angio not done to conserve contrast, given patient's advanced CKD - Recurrent VT within 4 hours of coronary intervention; no recurrence since - started on Amiodarone tx during hospitalization - Echo on 05-04-23: LVEF 45-50% w/o RWMA, mild enlargement of both atria, small pericard eff, PASP 20-25 mmHg - Echo on 07-04-23: LVEF 55-60%, mild enlargement of both atria, mild to mod MR, trivial AI, PASP 55-60 mmHg DM II JENNIFER on CKD-4 - JENNIFER improving with hydration Obesity - BMI 41 KEVIN Plan: * D/c amiodarone: no recurrence of VT after discharge after treatment of culprit lesion * Continue to hold diuretic and K * Monitor labs Clinical Quality Measures AMI/AHF: ASA po Prior to arrival: JORGITO Atwood MD FACP [facility] CCDS Jul 05, 2023 14:07
--- NOTE | 2023-07-05 15:42 | History & Physical-Hospitalist ---
History of Present Illness HPI/Chief Complaint Bryan Heard is a 62 year old male with PMH HTN, T2DM, CAD, VTach, CKD4, obesity, who presented with lightheadedness. He denies chest pain and palpitations. He denies shortness of breath. He denies fevers and chills. He denies abdominal pain, nausea, vomiting, and diarrhea. He has no other complaints. His symptoms have resolved at this time. Source: patient Exam Limitations: no limitations Date Seen 07/05/23 Time Seen by a Provider: 10:15 Attending Physician Rock Ellington DO PCP Admitting Physician: Imer Kim MD Attending Physician: Imer Kim MD Referring Physician Date of Admission Jul 04, 2023 at 15:39 Home Medications & Allergies Home Medications Reviewed patient Home Medication Reconciliation performed by pharmacy medication reconciliations plating technician and/or nursing. Patients Allergies have been reviewed. Allergies Allergies Coded Allergies pioglitazone HCl (Verified Allergy, Unknown, 03/25/17) LISTED BY DR. GUIDO. Uncoded Allergies TETANUS ( Allergy, Unknown, 03/23/17) Past Ipvjhne-Gnmbkw-Jksrjo Hx Patient Social History Tobacco Use?: No Use of E-Cig and/or Vaping dev: No Substance use?: No Alcohol Use?: Yes Alcohol type: Beer Alcohol Frequency: Rarely Pt feels they are or have been: No Immunizations Up To Date Date of Influenza Vaccine: May 10, 2016 First/Initial COVID19 Vaccinat: N/A Second COVID19 Vaccination Kristofer: N/A Tetanus Booster (TDap): Unknown Date of Pneumonia Vaccine: May 13, 2014 Seasonal Allergies Seasonal Allergies: No Current Status Advance Directives: No Communicates: Verbally Primary Language: Ukrainian Preferred Spoken Language: Ukrainian Sensory deficits: Vision impairment Implanted or Applied Medical D: CPAP, Stents Past Medical History Surgeries: Coronary Stent, Orthopedic Coronary Artery Disease Sexually Transmitted Disease: No HIV/AIDS: No Polyps Arthritis Diabetes, Insulin dep Loss of Vision: Denies Hearing Impairment: Denies Adverse Reaction/Blood Tranf: No Family Medical History No Pertinent Family Hx Review of Systems Constitutional: dizziness Respiratory: no symptoms reported Cardiovascular: no symptoms reported Gastrointestinal: no symptoms reported Physical Exam Physical Exam Vital Signs Vital Signs - First Documented 07/04/23 07/04/23 11:37 23:54 Temp 36.5 Pulse 46 Resp 14 B/P (MAP) 152/84 (106) Pulse Ox 96 O2 Delivery Room Air O2 Flow Rate 2.00 Capillary Refill : Less Than 3 Seconds Height, Weight, BMI Height: 6'1.00" Weight: 285lbs. 0.0oz. 129.089585sl; 42.51 BMI Method:Stated General Appearance: No Apparent Distress, Obese HEENT: PERRL/EOMI, Pharynx Normal Respiratory: Lungs Clear, No Respiratory Distress Cardiovascular: Regular Rate, Rhythm, No Murmur Gastrointestinal: Normal Bowel Sounds, Non Tender, Soft Extremity: Normal Inspection, No Pedal Edema Neurologic/Psychiatric: Alert, Normal Mood/Affect Skin: Normal Color, Warm/Dry Results Results/Procedures Labs Laboratory Tests 07/04/23 12:07 07/05/23 04:49 Patient resulted labs reviewed. Imaging: Reviewed Imaging Report Assessment/Plan Admission Diagnosis Symptomatic bradycardia Admission Status: Inpatient Order (span 2 midnights) Reason for Inpatient Admission: Bradycardia Assessment and Plan Symptomatic bradycardia History of VTach Cardiology consulted Metoprolol stopped Hold Amiodarone Symptoms improved Remains bradycardic Monitor on telemetry JENNIFER on CKD4 Hold diuretics IV fluids T2DM Reduced dose Levemir Sliding scale insulin HTN CAD Morbid obesity DVT prophylaxis: Lovenox Diagnosis/Problems Diagnosis/Problems (1) Symptomatic bradycardia Status: Acute (2) Acute kidney injury superimposed on chronic kidney disease Status: Acute (3) HTN (hypertension) Status: Chronic (4) CKD (chronic kidney disease) stage 4, GFR 15-29 ml/min Status: Chronic (5) CAD (coronary artery disease) Status: Chronic (6) V-tach Status: Chronic (7) Morbid obesity Status: Chronic (8) T2DM (type 2 diabetes mellitus) Status: Chronic Qualifiers: Diabetes mellitus financial planning advisor insulin use: with half-way use Clinical Quality Measures AMI/AHF: ASA po Prior to arrival: IMER Singh MD Jul 05, 2023 15:42
[2023-07-05] MEDS ORDERED: ENOXAPARIN 40 MG/0.4 ML SYRINGE SQ SCH (16:00)
[2023-07-05] MEDS: inSUlin DETERMIR 1 UNIT/0.01 ML (CHARGE PER UNIT) SQ SCH (21:57)
[2023-07-06] VITALS (8 sets, daily range): BP systolic 100–167; BP diastolic 51–89
[2023-07-06 05:14] LABS: EOSINOPHILS # (AUTO) 0.1 10^3/uL (0.0-0.3); EOSINOPHILS % (AUTO) 1 % (0-10); HEMATOCRIT 34 % (40-54); HEMOGLOBIN 10.4 g/dL (13.3-17.7); MEAN CORPUSCULAR HGB CONC 31 g/dL (32-36)
[2023-07-06 05:16] LABS: BASOPHILS % (AUTO) 0 % (0-10); LYMPHOCYTES # (AUTO) 1.4 10^3/uL (1.0-4.0); LYMPHOCYTES % (AUTO) 24 % (12-44); MEAN CORPUSCULAR HEMOGLOBIN 29 pg (25-34); MEAN CORPUSCULAR VOLUME 92 fL (80-99); MEAN PLATELET VOLUME 11.5 fL (9.0-12.2); MONOCYTES # (AUTO) 0.7 10^3/uL (0.0-1.0); MONOCYTES % (AUTO) 12 % (0-12); NEUTROPHILS # (AUTO) 3.6 10^3/uL (1.8-7.8); NEUTROPHILS % (AUTO) 63 % (42-75); PLATELET COUNT 126 10^3/uL (130-400); WHITE BLOOD COUNT 5.8 10^3/uL (4.3-11.0)
[2023-07-06 05:34] LABS: ALBUMIN 3.4 GM/DL (3.2-4.5); POTASSIUM 4.9 MMOL/L (3.6-5.0)
[2023-07-06 05:35] LABS: CALCIUM 8.5 MG/DL (8.5-10.1)
[2023-07-06 05:36] LABS: TOTAL PROTEIN 6.3 GM/DL (6.4-8.2)
[2023-07-06 05:38] LABS: BILIRUBIN,TOTAL 0.4 MG/DL (0.1-1.0)
[2023-07-06 05:40] LABS: CREATININE SERUM 2.63 MG/DL (0.60-1.30)
[2023-07-06] MEDS: inSUlin ASPART 1 UNIT/0.01 ML (PER UNIT) SC SCH ×4 (05:49→20:48)
[2023-07-06] MEDS: SENNOSIDES 8.6 MG TABLET PO SCH ×2 (09:00→21:10)
[2023-07-06] MEDS: ASPIRIN 81 MG CHEWABLE TABLET PO SCH (09:10)
[2023-07-06] MEDS: NS IV 1000 ML 1,000 ML IV SCH (09:10)
[2023-07-06] MEDS: CLOPIDOGREL 75 MG TABLET PO SCH (09:10)
[2023-07-06] MEDS: inSUlin DETERMIR 1 UNIT/0.01 ML (CHARGE PER UNIT) SQ SCH ×2 (09:10→21:11)
[2023-07-06] MEDS: DOCUSATE SODIUM 100 MG CAPSULE PO SCH ×2 (09:11→21:10)
[2023-07-06] MEDS: ENOXAPARIN 40 MG/0.4 ML SYRINGE SQ SCH ×2 (10:03→21:11)
--- NOTE | 2023-07-06 10:46 | Progress Note - Cardiology ---
Cardiology SOAP Progress Note Subjective: Lying in bed States he feels well No further c/o dizziness He has been up in the room without any difficulty Objective: I&O/Vital Signs 07/05/23 07/06/23 07/06/23 07/06/23 23:30 00:00 00:20 00:26 Temp 36.2 Pulse 45 46 46 Resp 24 21 22 B/P (MAP) 139/77 (97) 139/77 (97) Pulse Ox 96 98 98 O2 Delivery Nasal Cannula Nasal Cannula Nasal Cannula O2 Flow Rate 2.00 2.00 2.00 07/06/23 07/06/23 07/06/23 07/06/23 00:28 04:00 04:45 07:00 Temp 36.4 Pulse 48 46 46 47 Resp 18 18 B/P (MAP) 100/51 (67) 100/51 (67) Pulse Ox 96 96 O2 Delivery Nasal Cannula Nasal Cannula O2 Flow Rate 2.00 2.00 07/06/23 08:00 Pulse 56 Resp 18 B/P (MAP) 127/71 (89) Pulse Ox 99 O2 Delivery Nasal Cannula O2 Flow Rate 2.00 07/05/23 23:59 Intake Total 2520 ml Balance 2520 ml Weight (Pounds): 285 Weight (Ounces): 0.0 Weight (Calculated Kilograms): 129.192680 Constitutional: AAO x 3, well-developed, well-nourished Respiratory: chest expansion is symmetric, chest is bilaterally symmetric, lungs clear to auscultation Cardiovascular: bradycardia Gastrointestional: soft, round, audible bowel sounds Extremities: no lower extremity edema bilateral Neurologic/Psychiatric: grossly intact Skin: No rash on exposed areas, No ulcerations on exposed areas Results/Procedures: Labs Laboratory Tests 07/05/23 11:36: Glucometer 200H 07/05/23 15:46: Glucometer 202H 07/05/23 21:00: Glucometer 191H 07/06/23 04:59: White Blood Count 5.8, Red Blood Count 3.65L, Hemoglobin 10.4L, Hematocrit 34L, Mean Corpuscular Volume 92, Mean Corpuscular Hemoglobin 29, Mean Corpuscular Hemoglobin Concent 31L, Red Cell Distribution Width 15.9H, Platelet Count 126L, Mean Platelet Volume 11.5, Immature Granulocyte % (Auto) 0, Neutrophils (%) (Auto) 63, Lymphocytes (%) (Auto) 24, Monocytes (%) (Auto) 12, Eosinophils (%) (Auto) 1, Basophils (%) (Auto) 0, Neutrophils # (Auto) 3.6, Lymphocytes # (Auto) 1.4, Monocytes # (Auto) 0.7, Eosinophils # (Auto) 0.1, Basophils # (Auto) 0.0, Immature Granulocyte # (Auto) 0.0, Percent Immature Platelet Fraction 5.8, Sodium Level 140, Potassium Level 4.9, Chloride Level 113H, Carbon Dioxide Level 21, Anion Gap 6, Blood Urea Nitrogen 46H, Creatinine 2.63H, Estimat Glomerular Filtration Rate 27, BUN/Creatinine Ratio 17, Glucose Level 72, Calcium Level 8.5, Corrected Calcium 9.0, Total Bilirubin 0.4, Aspartate Amino Transf (AST/SGOT) 11, Alanine Aminotransferase (ALT/SGPT) 15, Alkaline Phosphatase 77, Total Protein 6.3L, Albumin 3.4 Laboratory Tests 07/04/23 12:07 07/05/23 04:49 07/06/23 04:59 A/P: Assessment: Bradycardia with near syncope - improving H/O Incessant VT due to ac NSTEMI, resolved with PCI of culprit lesion on 05/04/23 - Emergency card cath on 05/04/23: 100% proximally occluded LCx successfully treated with Resolute [place] 2.0 x 12 mm stent with no residual stenosis and normal antegrade flow. D1 of LAD has 50% mid-vessel stenosis. Multiple mild to mod plaques in all coronaries. RCA dominant. LVEDP 23 mmHg. LV angio not done to conserve contrast, given patient's advanced CKD - Recurrent VT within 4 hours of coronary intervention; no recurrence since - started on Amiodarone tx during hospitalization - Echo on 05-04-23: LVEF 45-50% w/o RWMA, mild enlargement of both atria, small pericard eff, PASP 20-25 mmHg - Echo on 07-04-23: LVEF 55-60%, mild enlargement of both atria, mild to mod MR, trivial AI, PASP 55-60 mmHg DM II JENNIFER on CKD-4 - JENNIFER improving with hydration Obesity - BMI 41 KEVIN Plan: * D/c amiodarone: no recurrence of VT after discharge after treatment of culprit lesion * HR has improved to the 50's * Ambulate in the su today * Continue to hold diuretic and K * Monitor labs - Cr improved * Possible home later today Clinical Quality Measures AMI/AHF: ASA po Prior to arrival: MATHEUS Camilo Jul 06, 2023 10:46
[2023-07-06] MEDS ORDERED: INSU100I10 SC (12:22)
[2023-07-06] MEDS: ACETAMINOPHEN 325 MG TABLET PO PRN (16:14)
--- NOTE | 2023-07-06 17:22 | Progress Note - Cardiology ---
Cardiology SOAP Progress Note Subjective: No cp or palp or syncope or shortness of breath No n/v/d No focal weakness No gen weakness Dizziness much improved Wishes to go home Objective: I&O/Vital Signs 07/06/23 07/06/23 07/06/23 07/06/23 07:00 08:00 08:00 12:00 Pulse 47 56 52 Resp 18 21 B/P (MAP) 127/71 (89) 140/84 (102) Pulse Ox 99 99 99 O2 Delivery Nasal Cannula Room Air Nasal Cannula O2 Flow Rate 2.00 2.00 07/06/23 07/06/23 07/06/23 12:00 13:00 16:05 Temp 36.7 36.5 Pulse 55 58 Resp 18 B/P (MAP) 152/78 (102) Pulse Ox 93 O2 Delivery Room Air 07/05/23 23:59 Intake Total 2520 ml Balance 2520 ml Weight (Pounds): 285 Weight (Ounces): 0.0 Weight (Calculated Kilograms): 129.684469 Constitutional: AAO x 3, well-developed, well-nourished Respiratory: chest expansion is symmetric, chest is bilaterally symmetric, lungs clear to auscultation Cardiovascular: bradycardia Gastrointestional: soft, round, audible bowel sounds Extremities: no lower extremity edema bilateral Neurologic/Psychiatric: grossly intact Skin: No rash on exposed areas, No ulcerations on exposed areas Results/Procedures: Labs Laboratory Tests 07/05/23 21:00: Glucometer 191H 07/06/23 04:59: White Blood Count 5.8, Red Blood Count 3.65L, Hemoglobin 10.4L, Hematocrit 34L, Mean Corpuscular Volume 92, Mean Corpuscular Hemoglobin 29, Mean Corpuscular Hemoglobin Concent 31L, Red Cell Distribution Width 15.9H, Platelet Count 126L, Mean Platelet Volume 11.5, Immature Granulocyte % (Auto) 0, Neutrophils (%) (Auto) 63, Lymphocytes (%) (Auto) 24, Monocytes (%) (Auto) 12, Eosinophils (%) (Auto) 1, Basophils (%) (Auto) 0, Neutrophils # (Auto) 3.6, Lymphocytes # (Auto) 1.4, Monocytes # (Auto) 0.7, Eosinophils # (Auto) 0.1, Basophils # (Auto) 0.0, Immature Granulocyte # (Auto) 0.0, Percent Immature Platelet Fraction 5.8, Sodium Level 140, Potassium Level 4.9, Chloride Level 113H, Carbon Dioxide Level 21, Anion Gap 6, Blood Urea Nitrogen 46H, Creatinine 2.63H, Estimat Glomerular Filtration Rate 27, BUN/Creatinine Ratio 17, Glucose Level 72, Calcium Level 8.5, Corrected Calcium 9.0, Total Bilirubin 0.4, Aspartate Amino Transf (AST/SGOT) 11, Alanine Aminotransferase (ALT/SGPT) 15, Alkaline Phosphatase 77, Total Protein 6.3L, Albumin 3.4 07/06/23 12:07: Glucometer 112H Laboratory Tests 07/05/23 04:49 07/06/23 04:59 A/P: Assessment: Bradycardia with near syncope - improved H/O Incessant VT due to ac NSTEMI, resolved with PCI of culprit lesion on 05/04/23 - Emergency card cath on 05/04/23: 100% proximally occluded LCx successfully treated with Resolute [place] 2.0 x 12 mm stent with no residual stenosis and normal antegrade flow. D1 of LAD has 50% mid-vessel stenosis. Multiple mild to mod plaques in all coronaries. RCA dominant. LVEDP 23 mmHg. LV angio not done to conserve contrast, given patient's advanced CKD - Recurrent VT within 4 hours of coronary intervention; no recurrence since - started on Amiodarone tx during hospitalization - Echo on 05-04-23: LVEF 45-50% w/o RWMA, mild enlargement of both atria, small pericard eff, PASP 20-25 mmHg - Echo on 07-04-23: LVEF 55-60%, mild enlargement of both atria, mild to mod MR, trivial AI, PASP 55-60 mmHg DM II JENNIFER on CKD-4 - JENNIFER improving with hydration Obesity - BMI 41 KEVIN Plan: * D/c amiodarone: no recurrence of VT after discharge after treatment of culprit lesion * HR has improved to the 50s/60s * Ambulate in the su today * Continue to hold diuretic and K * Monitor labs - Cr improved * D/c home later today Clinical Quality Measures AMI/AHF: ASA po Prior to arrival: JORGITO Atwood MD FACP [facility] Jul 06, 2023 17:22
--- NOTE | 2023-07-06 19:42 | Progress Note - Hospitalist ---
Subjective HPI/CC On Admission Date Seen by Provider: Jul 06, 2023 Time Seen by Provider: 09:25 Bryan Heard is a 62 year old male with PMH HTN, T2DM, CAD, VTach, CKD4, obesity, who presented with lightheadedness. He denies chest pain and palpitations. He denies shortness of breath. He denies fevers and chills. He denies abdominal pain, nausea, vomiting, and diarrhea. He has no other complaints. His symptoms have resolved at this time. Subjective/Events-last exam He reports feeling better. He denies lightheadedness. He denies chest pain. He denies shortness of breath. Objective Exam Vital Signs Vital Signs Date Time Temp Pulse Resp B/P (MAP) Pulse Ox O2 Delivery O2 Flow Rate FiO2 07/06/23 19:24 36.6 58 20 167/89 (115) Nasal Cannula 07/06/23 16:05 93 07/06/23 12:00 2.00 Capillary Refill : Less Than 3 Seconds General Appearance: No Apparent Distress, Obese Respiratory: Lungs Clear, No Respiratory Distress Cardiovascular: No Murmur, Bradycardia Gastrointestinal: Normal Bowel Sounds, Soft Extremity: Normal Inspection, No Pedal Edema Neurologic/Psychiatric: Alert, Normal Mood/Affect Skin: Normal Color, Warm/Dry Results/Procedures Lab Laboratory Tests 07/06/23 04:59 Patient resulted labs reviewed. Imaging: Reviewed Imaging Report Assessment/Plan Assessment and Plan Assess & Plan/Chief Complaint Symptomatic bradycardia History of VTach Cardiology following Metoprolol stopped Amiodarone stopped Symptoms improving Remains bradycardic Monitor on telemetry JENNIFER on CKD4 Hold diuretics Stop IV fluids T2DM Reduced dose Levemir Sliding scale insulin HTN CAD Morbid obesity DVT prophylaxis: Lovenox Diagnosis/Problems Diagnosis/Problems (1) Symptomatic bradycardia Status: Acute (2) Acute kidney injury superimposed on chronic kidney disease Status: Acute (3) HTN (hypertension) Status: Chronic (4) CKD (chronic kidney disease) stage 4, GFR 15-29 ml/min Status: Chronic (5) CAD (coronary artery disease) Status: Chronic (6) V-tach Status: Chronic (7) Morbid obesity Status: Chronic (8) T2DM (type 2 diabetes mellitus) Status: Chronic Qualifiers: Diabetes mellitus usp insulin use: with usp use Clinical Quality Measures AMI/AHF: ASA po Prior to arrival: IMER Singh MD Jul 06, 2023 19:42
[2023-07-07 03:30] VITALS: BP 129/68
[2023-07-07 05:02] LABS: BASOPHILS % (AUTO) 1 % (0-10); EOSINOPHILS # (AUTO) 0.1 10^3/uL (0.0-0.3); EOSINOPHILS % (AUTO) 2 % (0-10); HEMATOCRIT 34 % (40-54); HEMOGLOBIN 10.6 g/dL (13.3-17.7); LYMPHOCYTES # (AUTO) 1.3 10^3/uL (1.0-4.0); LYMPHOCYTES % (AUTO) 23 % (12-44); MEAN CORPUSCULAR HEMOGLOBIN 28 pg (25-34); MEAN CORPUSCULAR HGB CONC 31 g/dL (32-36); MEAN CORPUSCULAR VOLUME 91 fL (80-99); MEAN PLATELET VOLUME 11.2 fL (9.0-12.2); MONOCYTES # (AUTO) 0.6 10^3/uL (0.0-1.0); MONOCYTES % (AUTO) 11 % (0-12); NEUTROPHILS # (AUTO) 3.6 10^3/uL (1.8-7.8); NEUTROPHILS % (AUTO) 64 % (42-75); PLATELET COUNT 160 10^3/uL (130-400); WHITE BLOOD COUNT 5.6 10^3/uL (4.3-11.0)
[2023-07-07 05:16] LABS: ALBUMIN 3.4 GM/DL (3.2-4.5)
[2023-07-07 05:17] LABS: POTASSIUM 4.9 MMOL/L (3.6-5.0)
[2023-07-07 05:18] LABS: CALCIUM 8.9 MG/DL (8.5-10.1)
[2023-07-07 05:19] LABS: TOTAL PROTEIN 6.5 GM/DL (6.4-8.2)
[2023-07-07 05:21] LABS: BILIRUBIN,TOTAL 0.4 MG/DL (0.1-1.0)
[2023-07-07 05:23] LABS: CREATININE SERUM 2.52 MG/DL (0.60-1.30)
[2023-07-07] MEDS: inSUlin ASPART 1 UNIT/0.01 ML (PER UNIT) SC SCH ×2 (06:16→12:00)
[2023-07-07 07:30] VITALS: BP 177/89
[2023-07-07] MEDS: ENOXAPARIN 40 MG/0.4 ML SYRINGE SQ SCH (09:18)
[2023-07-07] MEDS: ACETAMINOPHEN 325 MG TABLET PO PRN (09:18)
[2023-07-07] MEDS: SENNOSIDES 8.6 MG TABLET PO SCH (09:19)
[2023-07-07] MEDS: inSUlin DETERMIR 1 UNIT/0.01 ML (CHARGE PER UNIT) SQ SCH (09:19)
[2023-07-07] MEDS: ASPIRIN 81 MG CHEWABLE TABLET PO SCH (09:19)
[2023-07-07] MEDS: DOCUSATE SODIUM 100 MG CAPSULE PO SCH (09:19)
[2023-07-07] MEDS: CLOPIDOGREL 75 MG TABLET PO SCH (09:19)
[2023-07-07 10:00] VITALS: BP_SYST 147; BP_SYST 152; BP_SYST 166; BP_DIAS 77; BP_DIAS 87; BP_DIAS 93
--- NOTE | 2023-07-07 10:12 | Diagnostic Imaging Report ---
PROCEDURE: CT head without contrast. TECHNIQUE: Multiple contiguous axial images were obtained through the brain without the use of intravenous contrast. Auto Exposure Controls were utilized during the CT exam to meet ALARA standards for radiation dose reduction. INDICATION: Dizziness and headache. No prior studies are available for comparison. The ventricles and sulci are within normal limits. There is no sulcal effacement or midline shift. No acute intra-axial or extra-axial hemorrhage is detected. Cisterns are patent. Visualized paranasal sinuses are clear. IMPRESSION: No acute intracranial process is detected. Dictated by: Dictated on workstation # [id number]
--- NOTE | 2023-07-07 10:58 | Diagnostic Imaging Report ---
PROCEDURE: US carotid duplex, bilateral. TECHNIQUE: Multiple real-time grayscale images were obtained over the carotid arteries in various projections, bilaterally. Additional spectral analysis and color Doppler duplex images were also obtained. INDICATION: Dizziness. There is mild plaquing identified in the proximal internal carotid arteries bilaterally. However, velocities in both carotid systems appear normal but. No velocity elevation or stenosis is identified. Both vertebral arteries show antegrade flow. IMPRESSION: Mild bilateral carotid plaque. There is no evidence of a hemodynamically significant stenosis. Parameters based on the consensus panel Garza-Scale and Doppler ultrasound criteria published June 2003, Radiology, Volume 229. DOPPLER (peak systolic velocity M/S Right Left CCA 1.00 1.09 ICA Proximal 0.79 1.01 ICA Mid 0.91 0.98 ICA Distal 0.75 0.94 RATIO 0.92 0.93 ECA 1.93 1.71 VERT 0.68 1.01 Dictated by: Dictated on workstation # [id number]
[2023-07-07 11:31] VITALS: BP 164/92
--- NOTE | 2023-07-07 14:34 | Physical Therapy Evaluation ---
PT Evaluation-General Medical Diagnosis Admission Date Jul 04, 2023 at 15:39 Medical Diagnosis: acute kidney injury Onset Date: Jul 04, 2023 Therapy Diagnosis Therapy Diagnosis: debility Height/Weight Height (Feet): 6 Height (Inches): 1.00 Weight (Pounds): 285 Weight (Ounces): 0.0 Precautions Precautions/Isolations: Standard Precautions Referral Physician: Judy Reason for Referral: Evaluation/Treatment Medical History Pertinent Medical History: CAD, DM, HTN, [place], Renal Insufficiency Current History ambulated to ER secondary to dizziness Reviewed History: Yes Social History Home: Single Level Current Living Status: Spouse Prior Prior Level of Function SCALE: Activities may be completed with or without assistive devices. 0-Vciarbldbl-vdxdmog completes the activity by him/herself with no assistance from a helper. 5-Set-up or Clean-up Assistance-helper sets up or cleans up; patient completes activity. [place] assists only prior to or following the activity. 4-Supervision or Touching Assistance-helper provides verbal cues and/or t ouching/steadying and/or contact guard assistance as patient completes activity. Assistance may be provided throughout the activity or intermittently. 3-Partial/Moderate Assistance-helper does LESS THAN HALF the effort. [place] lifts, holds or supports trunk or limbs, but provides less than half the effort. 2-Substantial/Maximal Assistance-helper does MORE THAN HALF the effort. [place] lifts or holds trunk or limbs and provides more than half the effort. 6-Wwqjtxhxo-sblwmn does ALL the effort. Patient does none of the effort to complete the activity. Or, the assistance of 2 or more helpers is required for the patient to complete the activity. If activity was not attempted, code reason: 7-Patient Refused. 9-Not Applicable-not attempted and the patient did not perform the activity before the current illness, exacerbation or injury. 10-Not Attempted due to Environmental Limitations-(lack of equipment, weather restraints, etc.). 88-Not Attempted due to Medical Conditions or Safety Concerns. Bed Mobility: 6 Transfers (B,C,W/C): 6 Gait: 6 Stairs: 6 Indoor Mobility (Ambulation): Independent Stairs: Independent Prior Devices Use: None PT Evaluation-Current Subjective Patient agrees to PT. Currently having a nose bleed. Objective Patient Orientation: Normal For Age Attachments: Oxygen (2L NC) ROM/Strength ROM Lower Extremities bilateral LE WFL Strength Lower Extremities 4+/5 grossly bilateral LE all planes Integumentary/Posture Bowel Incontinence: No Bladder Incontinence: No Posture WFL Neuromuscular (Tone, Coordination, Reflexes) grossly intact Sensory Vision: Functional Hearing: Functional Transfers Sit to Stand (QC): 6 Gait Mode of Locomotion: Walk Anticipated Mode of Locomotion: Walk Walk 10 feet (QC): 6 Walk 50 ft with 2 Turns(QC): 6 Walk 150 ft (QC): 6 Distance: 250' Gait Assistive Device: None Comments/Gait Description safe and functional with no deviation Balance Sitting Static: Normal Sitting Dynamic: Normal Standing Static: Normal Standing Dynamic: Normal Assessment/Needs SAO2 on 2L NC 98% with activity. Patient is currently at independent LOF with all gross motor skills and does not require skilled PT intervention at this time. Rehab Potential: Fair PT Plan Treatment/Plan Treatment Plan: Discontinue PT Treatment Duration: Jul 07, 2023 Frequency: 1 time per week Estimated Hrs Per Day: .25 hour per day Patient and/or Family Agrees t: Yes Time Time In: 1401 Time Out: 1411 DATE: Jul 07, 2023 Total Billed Treatment Time: 10 Total Billed Treatment 1 visit EVModC 10 min MARY ABBOTT PT Jul 07, 2023 14:34
--- NOTE | 2023-07-07 16:30 | Progress Note - Cardiology ---
Cardiology SOAP Progress Note Subjective: D/c held yesterday because of dizziness and some blurriness of the vision when walking yesterday Better today. Does not report any visual issues Some gen weakness No focal weakness No cp or palp or syncope or shortness of breath No n/v/d Objective: I&O/Vital Signs 07/07/23 07/07/23 07/07/23 07/07/23 05:56 07:00 07:30 08:00 Temp 35.9 Pulse 65 67 Resp 23 B/P (MAP) 177/89 (118) Pulse Ox 91 98 O2 Delivery Nasal Cannula Room Air Room Air O2 Flow Rate 2.00 07/07/23 07/07/23 07/07/23 10:00 11:31 12:49 Temp 36.1 Pulse 62 60 63 67 65 Resp 20 B/P (MAP) 152/87 (108) 164/92 (116) 166/93 (117) 147/77 (100) Pulse Ox 97 O2 Delivery Nasal Cannula O2 Flow Rate 2.00 07/06/23 23:59 Intake Total 2100 ml Balance 2100 ml Weight (Pounds): 285 Weight (Ounces): 0.0 Weight (Calculated Kilograms): [id number] Constitutional: AAO x 3, well-developed, well-nourished Respiratory: chest expansion is symmetric, chest is bilaterally symmetric, lungs clear to auscultation Cardiovascular: bradycardia Gastrointestional: soft, round, audible bowel sounds Extremities: no lower extremity edema bilateral Neurologic/Psychiatric: grossly intact Skin: No rash on exposed areas, No ulcerations on exposed areas Results/Procedures: Labs Laboratory Tests 07/06/23 20:25: Glucometer 132H 07/07/23 04:35: White Blood Count 5.6, Red Blood Count 3.74L, Hemoglobin 10.6L, Hematocrit 34L, Mean Corpuscular Volume 91, Mean Corpuscular Hemoglobin 28, Mean Corpuscular Hemoglobin Concent 31L, Red Cell Distribution Width 15.8H, Platelet Count 160, Mean Platelet Volume 11.2, Immature Granulocyte % (Auto) 0, Neutrophils (%) (Auto) 64, Lymphocytes (%) (Auto) 23, Monocytes (%) (Auto) 11, Eosinophils (%) (Auto) 2, Basophils (%) (Auto) 1, Neutrophils # (Auto) 3.6, Lymphocytes # (Auto) 1.3, Monocytes # (Auto) 0.6, Eosinophils # (Auto) 0.1, Basophils # (Auto) 0.0, Immature Granulocyte # (Auto) 0.0, Sodium Level 140, Potassium Level 4.9, Chloride Level 111H, Carbon Dioxide Level 23, Anion Gap 6, Blood Urea Nitrogen 37H, Creatinine 2.52H, Estimat Glomerular Filtration Rate 28, BUN/Creatinine Ratio 15, Glucose Level 73, Calcium Level 8.9, Corrected Calcium 9.4, Total Bilirubin 0.4, Aspartate Amino Transf (AST/SGOT) 13, Alanine Aminotransferase (ALT/SGPT) 15, Alkaline Phosphatase 81, Total Protein 6.5, Albumin 3.4 07/07/23 12:01: Glucometer 92 Laboratory Tests 07/06/23 04:59 07/07/23 04:35 A/P: Assessment: Bradycardia with near syncope - much improved H/O Incessant VT due to ac NSTEMI, resolved with PCI of culprit lesion on 05/04/23 - Emergency card cath on 05/04/23: 100% proximally occluded LCx successfully treated with Resolute Anthony 2.0 x 12 mm stent with no residual stenosis and normal antegrade flow. D1 of LAD has 50% mid-vessel stenosis. Multiple mild to mod plaques in all coronaries. RCA dominant. LVEDP 23 mmHg. LV angio not done to conserve contrast, given patient's advanced CKD - Recurrent VT within 4 hours of coronary intervention; no recurrence since - started on Amiodarone tx during the hospitalization for NSTEMI - Echo on 05-04-23: LVEF 45-50% w/o RWMA, mild enlargement of both atria, small pericard eff, PASP 20-25 mmHg - Echo on 07-04-23: LVEF 55-60%, mild enlargement of both atria, mild to mod MR, trivial AI, PASP 55-60 mmHg - Amiodarone stopped on 07/05/23 due to marked sinus zully DM II JENNIFER on CKD-4 - JENNIFER improving with hydration Obesity - BMI 41 KEVIN Dizziness of undetermined etiology, managed by the Hospitalist svce - CT head negative for any lesions on 07-07-23 - Carotid u/s negative for any significant lesions (mild plaques only) on 12-7-23 Plan: * HR has improved to the 50s/60s. No significant arrhythmia * CT head and carotid w/u negative today * Ambulate in the su today * Monitor labs - Cr improved * D/c home later today Clinical Quality Measures AMI/AHF: ASA po Prior to arrival: JORGITO Atwood MD FACP [facility] CCDS Jul 07, 2023 16:30
== END 2023-07-07 17:12 | disposition home or self-care (01) | DRG 309 ==
LOC: EDUNIT# 11:25 → ER 11:26 → CSD 15:39
PROVIDERS: ADMIT Internal Medicine; ATTEND Internal Medicine
DX: R00.1 Bradycardia, unspecified (principal); N17.9 Acute kidney failure, unspecified; N18.4 Chronic kidney disease, stage 4 (severe); Z68.41 Body mass index [BMI] 40.0-44.9, adult; E11.22 Type 2 diabetes mellitus with diabetic chronic kidney disease; I12.9 Hypertensive chronic kidney disease with stage 1 through stage 4 chronic kidney disease, or unspecified chronic kidney disease; G47.33 Obstructive sleep apnea (adult) (pediatric); E66.01 Morbid (severe) obesity due to excess calories; I25.10 Atherosclerotic heart disease of native coronary artery without angina pectoris; Z95.5 Presence of coronary angioplasty implant and graft; M19.90 Unspecified osteoarthritis, unspecified site; Z79.82 Long term (current) use of aspirin; Z79.899 Other long term (current) drug therapy; Z79.4 Long term (current) use of insulin; I25.2 Old myocardial infarction
CPT/HCPCS: 36415; 70450; 80048; 80053; 82947; 83735; 84443; 85025; 93005; 93041; 93306; 93880; 94761; 96360